=== PATIENT | female | born 1940 | race Caucasian/White ===

== ENCOUNTER 2024-03-25 19:44 | Inpatient (IN) | payer MEDICARE, SELFPAY ==
[2024-03-25 15:35] VITALS: BP 114/50; BMI 26.5
[2024-03-25 15:49] LABS: Hematocrit 35.4 % (37.0-47.0); Hemoglobin 12.2 g/dL (12.0-16.0); Mean Corp Hgb Conc. 34.5 g/dL (33.0-37.0); Mean Corpuscular Hgb 29.1 pg (27.0-31.0); Mean Corpuscular Volume 84.5 fL (81.0-99.0); Mean Platelet Volume 10.1 fL (7.4-10.4); Platelet Count 225 10^3/uL (130-400); Red Blood Cell Count 4.19 10^6/uL (4.20-5.40); Red Cell Dist. Width 13.3 % (11.5-14.5); White Blood Cell Count 8.4 10^3/uL (4.8-10.8)
[2024-03-25 16:10] LABS: ALT (SGPT) 142 U/L (0-35); AST (SGOT) 255 U/L (14-36); Alkaline Phosphatase 104 U/L (38-126); Blood Urea Nitrogen 11 mg/dl (7-17); Calcium 8.8 mg/dl (8.4-10.2); Carbon Dioxide 26 mmol/L (22-30); Chloride 111 mmol/L (98-107); Estimated Creatinine Clearance 51 ml/min; Glucose 111 mg/dl (70-99); Potassium 4.3 mmol/L (3.5-5.1); Sodium 139 mmol/L (135-145); Total Bilirubin 0.5 mg/dl (0.2-1.3); Total Protein 6.3 g/dl (6.3-8.2); eGFR > 60.00
[2024-03-25 16:12] LABS: Troponin I < 0.012 ng/ml
--- NOTE | 2024-03-25 16:59 | ED.GENMED ---
History of Present Illness
General
Chief Complaint: Chest Pain
Source: patient, ambulance crew and other (significant other)
Time Seen by Provider: 03/25/24 16:46
History of Present Illness
History of Present Illness:
83-year-old female with past medical history of early dementia, hypercholesterolemia presenting to the emergency department via EMS from [facility] for evaluation after she was reporting upper abdominal/chest
discomfort that started about 30 minutes prior to arrival to the emergency department, fully resolved upon getting to the ER. Patient was given 481 mg aspirin tablets and approximately 200 mL of IV fluids after her blood pressure was found to be
low and she is reporting her symptoms are all now fully resolved. Patient is unable to recall much about the pain secondary to her dementia history. Patient's boyfriend who is currently in the room with her was noting that he sees her about 3
times per week and was there when the patient expressed the pain and he contacted the security at [facility] who were the ones who contacted EMS. Patient does have a history of some type of mass removal from the stomach and hysterectomy as part
of surgical history. Patient does not believe she has had prior cholecystectomy nor appendectomy.
Past History
Past History
ED Past Medical History: Hypercholesterolemia and Other (Dementia)
ED Past Surgical History: Brain, Gynecological, Orthopedic and Other
Social History
Tobacco: Non-smoker
Alcohol: Occasional
Drug: None
Personal: Partner
Living: alone
Review of Systems
Review of Systems
All Other Systems: ROS reviewed and negative except as documented in HPI and ROS
Phy Exam
Physical Exam
Physical Exam:
GENERAL: Alert , in no apparent distress, smiling and pleasant
EYE: clear conjunctiva b/l
HEAD: NCAT
ENT: o/p clr, mmm.
CARDIAC: Regular rate and rhythm .
LUNGS: Clear breath sounds bilaterally, no acute respiratory distress, no wheezes/rales/rhonchi
ABDOMEN: Soft, tenderness within the epigastrum, no r/g, no cvat, negative Bonilla sign, no tenderness at McBurney's point
NEUROLOGICAL: Alert and oriented
SKIN: Warm and dry, skin intact.
MUSCULOSKELETAL: well perfused.
PSYCH: Normal and appropriate interaction.
Scores
Heart Failure Risk
Heart Failure Risk Score: Not Applicable
Heart Score for Chest Pain Patients
STEMI patient?: No
History: Slightly or Non-Suspicious
ECG: Normal
Age: >/= 65 years
Risk Factors: 1 or 2 Risk Factors
Troponin: </= Normal Limit
Heart Score for Chest Pain Patients: 3
Heart Score Risk: 2.5% MACE over next 6 weeks
Withdrawal Assessment of Alcohol
Withdrawal Assessment Completed?: Not applicable
Course
Orders/Labs/Results
Orders:
Orders
03/25/24 15:30
EKG [Electrocardiogram (*1)] Urgent
Reason for Study: Chest Pain
03/25/24 15:31
EKG- Treatment ONCE
03/25/24 15:33
Alcohol Urgent
Complete Blood Count/No Diff Urgent
Comprehensive Metabolic Panel Urgent
Lipase Urgent
Comment: ADD ON
Troponin I Urgent
03/25/24 16:48
US Abdomen Complete/Upper Urgent
Comment:
Reason For Exam: upper abd pain/chest pain
03/25/24 16:54
Add On- LAB Urgent
Tests Added?: alcohol
03/25/24 17:29
Add On- LAB Urgent
Tests Added?: lipase
03/25/24 18:34
EKG [Electrocardiogram (*1)] Urgent
Reason for Study: Other
Other Reason for Exam: repeat trop
EKG- Treatment ONCE
03/25/24 18:38
Troponin I Urgent
03/25/24 19:07
Admit/Transfer Patient As Directed
Co-Sign Provider:
Level of Care: Inpatient admission
Assign to:: Medical/Surgical
Physician / Group: susan
Diagnosis: cholelithiasis
Reason for Hospitalization: cholelithiasis
Expected length of stay greater than two midnights?: Yes
ELOS- Estimated Length of Stay in days: 3
I certify the patient meets the requirements for IP care: Yes
Code Status As Directed
Resuscitation Status: Do not resuscitate
Reached after discussion with pt or family/Healthcare POA: Yes
PRN Pain Medication Management As Directed
May give lesser potent ordered pain med per pt: Yes
preference::
Protocol:: Medication orders for pain may be administered in a
manner that supports deferring to patient preference
when the pt is:
- Requesting an ordered lesser potent pain medication.
Least to most potent pain medications are defined
as: acetaminophen < NSAID < tramadol < opioids
(morphine, oxycodone, hydromorphone).
- Requesting a lesser dose of the same medication IF
ORDERED.
- Requesting a less intrusive route of administration
if both routes are prescribed by the provider (PO <
IV).
03/25/24 19:08
DNR Bracelet Application ONCE
Abnormal Lab Results
03/25/24
15:33
RBC 4.19 L 10^6/uL
(4.20-5.40)
Hct 35.4 L %
(37.0-47.0)
Chloride 111 H mmol/L
(98-107)
Glucose 111 H mg/dl
(70-99)
AST 255 H U/L
(14-36)
ALT 142 H U/L
(0-35)
Albumin 3.0 L g/dl
(3.5-5.0)
03/25/24 15:33
03/25/24 15:33
Vital Signs
Initial and Last Documented VS:
Initial Vital Signs
Temp Pulse Resp BP Pulse Ox
97.9 F 73 30 114/50 97
03/25/24 15:35 03/25/24 15:35 03/25/24 15:35 03/25/24 15:35 03/25/24 15:35
Last Documented Vital Signs
Temp Pulse Resp BP Pulse Ox
97.9 F 75 24 114/50 96
03/25/24 15:35 03/25/24 19:00 03/25/24 19:00 03/25/24 15:35 03/25/24 19:00
MDM/Problems Addressed
Differential Diagnosis Includes:
possible ACS, referred GI pain, cholecystitis, cholelithiasis, GERD
MDM/Problems Addressed:
83-year-old female presenting to the emergency department to be evaluated for upper abdominal/chest pain that began about 30 minutes prior to arrival to the emergency department. Symptoms now fully resolved. Patient has history of dementia so
history was somewhat limited and difficult to obtain. Lab work had been initiated upon arrival which does show a transaminitis. Patient does not have previous labs to compare to. Patient and her significant other are both unaware of any previous
labs showing elevated LFTs. Given the reports of upper abdominal pain gallbladder/liver pathology is certainly possible. Will obtain an ultrasound to further evaluate. Will repeat EKG and troponin. Disposition pending.
*Radiology
Radiology exam reviewed: radiology read reviewed
*Pulse Oximetry
Patient hypoxic: no
*EKG
Interpreted by ED Provider?: Yes
Comparison EKG: no comparison EKG present
Heart Rate: 70
Rate: normal
Rhythm: sinus
Ischemia: no ischemia
*Malt House Operator Interpretation
Rate: normal
Rhythm: sinus
*Critical Care Note
Total Time (30-74mins, 75-104mins- exclusive of procedures): Not Applicable
Patient Management
Discussion with other providers: Hospitalist and [employer]otive [employer] Counter Person
Escalation/DeEscalation of care consider admission/obs:
Patient's ultrasound shows multiple shadowing gallstones filling the gallbladder lumen. There is no evidence for gallbladder wall thickening or pericholecystic edema. No evidence for biliary ductal dilatation. Patient maintaining she does not
have any pain but when you press on the epigastrium she is still stating that it causes her discomfort. I discussed the case with general surgery and given the patient's age combined with history of dementia it was best felt patient be observed
overnight with surgery consultation in the morning. Will hold on antibiotics given patient does not have a fever and no leukocytosis. Hospitalist team accepts for continued evaluation and treatment.
ED Attending Note
-
Portions of this chart may have been created with voice recognition software.� Occasional wrong word or��sound alike� substitutions may have occurred due to the inherent limitations of voice recognition software.
Discharge Plan
Departure
Patient Disposition: Admit
Date of Disposition: 03/25/24
Time of Disposition: 18:27
Presentation/result/management discussed w/ accepting MD/DO: Hospitalist
Discharge Problem:
Symptomatic cholelithiasis
Prescriptions:
No Action
donepezil 10 mg tablet
10 mg PO DAILY
prednisone 5 mg tablet
2.5 mg PO DAILY
Theragen Tablet
1 tab PO DAILY
cyanocobalamin (vitamin B-12) 500 mcg Tablet
500 mcg PO DAILY
memantine 10 mg tablet
20 mg PO DAILY
Referrals:
Jarocho Kam MD [Family Provider] -
Interventions
Interventions:
*Risk Screen - Suicide Last Done: 03/25/24 15:35
*General Assessment Last Done: 03/25/24 15:35
*Neglect/Abuse Screening Last Done: 03/25/24 15:35
*ED COVID-19 Vaccine History Last Done: 03/25/24 15:35
ED- Cardiac Assessment Last Done: 03/25/24 16:23
Discharge Date and Time
Print Language: PALESTINIAN
[2024-03-25 17:36] LABS: Alcohol None Detected
[2024-03-25 17:42] LABS: Lipase 125 U/L (23-300)
--- NOTE | 2024-03-25 18:41 | HPS.HSE ---
Family Physician
-
Family Physician: Jarocho Kam
Chief Complaint
-
epigastric pain
History of Present Illness
83-year-old female with past medical history of early dementia, hypercholesterolemia presented to us with epigastric pain. denied n/v/d. her LFT were elevated for past few months. as per daughter, she was required to do liver biopsy but never got to
it. denied fever, chills, chest pain, sob. denied CANCINO, dizzy or syncopal episode. denied dysuria or hematuria.
abdominal US with Multiple shadowing gallstones filling the gallbladder lumen. No gross evidence for gallbladder wall thickening or pericholecystic edema, although shadowing gallstones do slightly limit evaluation.
admitting for further management.
Medical History
Past Medical History
Past Medical History: Reports Other
Additional Past Medical History:
dementia
HTn
Past Surgical History: Reports Other
Additional Past Surgical History:
partial hysterectomy
aneurysm clips
Social History
Tobacco: Non-smoker
Alcohol: None
Drug: None
Personal: Single
Living: Alone
Family History
Family History: Not pertinent
Allergies / Home Medications
Allergies reflects when Allergies were last updated in [email or web address].
Home Medications with original date entered in [email or web address]
Allergy/Medication List:
Allergies
Allergy/AdvReac Type Severity Reaction Status Date / Time
No Known Allergies Allergy Verified 03/25/24 15:32
Home Medications
cyanocobalamin (vitamin B-12) 500 mcg tablet 500 mcg PO DAILY 03/25/24
donepezil 10 mg tablet 10 mg PO DAILY 03/25/24
memantine 10 mg tablet 20 mg PO DAILY 03/25/24
prednisone 5 mg tablet 2.5 mg PO DAILY 03/25/24
therapeutic multivitamin 1 tab PO DAILY 03/25/24
Review of Systems
-
Constitutional: Reports No Symptoms
EENT: Reports No Symptoms
Respiratory: Reports No Symptoms
Cardiac: Reports No Symptoms
Abdomen/GI: Reports Abdominal Pain
: Reports No Symptoms
Musculoskeletal: Reports No Symptoms
Skin: Reports No Symptoms
Neurological: Reports No Symptoms
Endocrine: Reports No Symptoms
Hematologic/Lymphatic: Reports No Symptoms
Psych: Reports No Symptoms
Physical Exam
Vital Signs
Vital Signs
Temp Pulse Resp BP Pulse Ox
97.9 F 77 26 114/50 97
03/25/24 15:35 03/25/24 16:45 03/25/24 16:45 03/25/24 15:35 03/25/24 17:39
Physical Exam
General: Well Developed, Well Nourished and No Apparent Distress
HEENT: NormoCephalic, Moist mucous membranes and Atraumatic
Respiratory: Clear
Cardiac: S1/S2 and Regular Rhythm; No Murmur or Rub
GI: Soft, Non Tender, Non Distended and Normal Bowel Sounds; No Organomegaly
Rectal: Deferred by Provider
Musculoskeletal: No Clubbing, No Cyanosis and No Edema
Skin: No Rash
Neuro: Nonfocal/grossly intact
Psych: Calm
Laboratory Results
-
03/25/24 15:33
03/25/24 15:33
Laboratory Results
Total Bilirubin 0.5 mg/dl (0.2-1.3) 03/25/24 15:33
AST 255 U/L (14-36) H 03/25/24 15:33
ALT 142 U/L (0-35) H 03/25/24 15:33
Alkaline Phosphatase 104 U/L (38-126) 03/25/24 15:33
Troponin I < 0.012 ng/ml 03/25/24 15:33
Lipase 125 U/L (23-300) 03/25/24 15:33
Data Reviewed
-
CT Scan: Report Reviewed by me
Lab Data: Labs Reviewed by me
Impression/Plan
-
#symptomatic cholelithiasis with elevated LFT
-AST 255,ALT 142
-US abdomen with Multiple shadowing gallstones filling the gallbladder lumen. No gross evidence for gallbladder wall thickening or pericholecystic edema, although shadowing gallstones do slightly limit evaluation.Negative sonographic Bonilla's sign.
No evidence for biliary ductal dilation.
-NPO
-fluids for hydration
-dilaudid prn for pain
-trend LFTs
-surgery consulted
#dementia
-Aricept,memantine continued
#RA
-prednisone continued
#DVT prophylaxis
-Lovenox
#CODE status
-DNR
--- NOTE | 2024-03-25 18:44 | W.PN.UPDATE ---
Update Note
Progress Note Update
This is an addendum to H&P written by PRODUCTION HONING MACHINE OPERATOR Tiana Villa
I saw and examined the patient.
The PRODUCTION HONING MACHINE OPERATOR's note was reviewed and I agree with the note.
Comment:
Ms. Modesta Hurst is a 83 yo woman with hx dementia, HLD presents with upper abdominal pain and chest discomfort that was fully resolved upon arrival to the ER.
Triage VS: T 97.9, P 73, RR 30, BP 114/50, SpO2 97%
LABS: WBC 8.4, H 12.2, PLT 225, Na 139, K+ 4.3, Cl 111, Cr 0.7, Glucose 111, T. Bili 0.5, AST 255, ALT 142, Trop 0.012, Lipase 125
RUQ US
IMPRESSION:
Multiple shadowing gallstones filling the gallbladder lumen. No gross evidence for gallbladder wall thickening or pericholecystic edema, although shadowing gallstones do slightly limit evaluation.
Negative sonographic Bonilla's sign. No evidence for biliary ductal dilation.
Coarsening of hepatic echotexture, a nonspecific finding suggesting hepatocellular disease.
Symptomatic Cholelithiasis
-history complicated as daughter reports patient has chronically elevated liver enzymes and plan was for liver biopsy that was not pursued. will request outpatient records.
-patient admitted to medicine
-case discussed by ER and Dr. Rothman, surgery team to fully consult tomorrow AM
-admit to med/surg
-IVF
-NPO after MN
-pain control
-currently no indication for abx
-patient is on low daily prednisone dose at home, dose not meet requirement for stress dose steroids for surgery
Dementia
-MANAGER IN HOME Donepezil and Memantine
Rheumatoid Arthritis
-MANAGER IN HOME Prednisone
DNR - confirmed by daughter over the phone
[2024-03-25 19:18] LABS: Troponin I < 0.012 ng/ml
[2024-03-25 20:31] VITALS: BP 124/60; BMI 27.4
[2024-03-25] MEDS: NSS 1000 IV (20:44)
--- NOTE | 2024-03-25 23:12 | VATNOTE ---
pt wants to keep Prehospital line in.
[2024-03-25 23:35] VITALS: BP 118/56
[2024-03-26 07:33] VITALS: BP 124/58
[2024-03-26 07:54] LABS: Hemoglobin 12.2 g/dL (12.0-16.0); Mean Corp Hgb Conc. 34.9 g/dL (33.0-37.0); Mean Corpuscular Hgb 29.1 pg (27.0-31.0); Mean Corpuscular Volume 83.5 fL (81.0-99.0); Mean Platelet Volume 10.4 fL (7.4-10.4); Platelet Count 211 10^3/uL (130-400); Red Blood Cell Count 4.19 10^6/uL (4.20-5.40); Red Cell Dist. Width 13.2 % (11.5-14.5); White Blood Cell Count 6.1 10^3/uL (4.8-10.8)
--- NOTE | 2024-03-26 08:03 | CON.GS ---
Addendum entered and electronically signed by Jamie Silverman MD 03/26/24 13:05:
Patient seen and examined independently of residential glazier. Agree with documented progress note.
Patient is a limited historian secondary to dementia. She states that she has had intermittent abdominal pain. It occurs at various times a day and often after meals. Came into the emergency department because it was worse than previously. In
follow-up with the patient's daughter she confirms the above history. She has also had mildly elevated liver testing recently that has been followed.
Currently patient denies pain while resting in bed. She is hungry. She would like to return to [place] [facility]. She lives in independent living still but with the assistance of her boyfriend family members and caretakers.
AFVSS
NAD AAO to self and hospital
Abdomen: Soft, nondistended, mild tenderness palpation epigastrium and right upper quadrant
Ultrasound with gallstones. No biliary ductal dilation.
Laboratory testing with normal white blood cell count.
Chemistries with mild elevation in AST and ALT but normal bilirubin and alkaline phosphatase. Lipase normal
HIDA scan completed. Radiologist report pending but on my review and interpretation the gallbladder appears to be promptly visualized as well as biliary tree and small intestine ruling out cystic duct or biliary obstruction.
Assessment/plan: 83-year-old female with biliary colic, likely acute on chronic intermittent episodes.
After discussions with the patient's daughter her preference is to manage gallstones expectantly through this hospitalization with plan for discharge at which point she will subsequently have follow-up conversations with her mother about considering
cholecystectomy for more definitive management.
Resume low-fat diet. Okay for discharge if tolerates p.o. challenge.
Original Note:
Consultation
-
Performing Provider: Milton Camacho MD ; Jamie Silverman MD
Reason for Consultation: Abdominal pain
Medical History
-
Chief Complaint: Epigastric and right upper quadrant abdominal pain
History of Present Illness:
83-year-old female with past medical history significant for dementia, hyperlipidemia presented to the emergency department with complaints of epigastric and right upper quadrant abdominal pain. She denies any nausea, vomiting, diarrhea. Per her
daughter, patient's liver function test were elevated for past few months, she was recommended to get liver biopsy but she never received that. Ultrasound of her abdomen is performed for further evaluation which showed multiple shadowing gallstones
filling the gallbladder lumen. No gross evidence of gallbladder wall thickening or pericholecystic edema, although shadowing gallstone to slightly limited evaluation. Patient was admitted for further evaluation.
Past Medical History
Past Medical History: HTN and Other (Dementia, hyperlipidemia)
Past Surgical History: Other (Hysterectomy, aneurysm clips)
Social History
Tobacco: Non-Smoker
Alcohol: None
Drug: None
Living: Alone
Allergies / Home Medications
Allergy/AdvReac Type Severity Reaction Status Date / Time
No Known Allergies Allergy Verified 03/25/24 15:32
�Medication �Instructions �Recorded �Confirmed �Type
cyanocobalamin (vitamin B-12) 500 500 mcg PO DAILY 03/25/24 03/25/24 History
mcg tablet
donepezil 10 mg tablet 10 mg PO DAILY 03/25/24 03/25/24 History
memantine 10 mg tablet 20 mg PO DAILY 03/25/24 03/25/24 History
prednisone 5 mg tablet 2.5 mg PO DAILY 03/25/24 03/25/24 History
therapeutic multivitamin 1 tab PO DAILY 03/25/24 03/25/24 History
Review of Systems
-
History Source: Patient
Constitutional: No Symptoms
EENT: No Symptoms
Respiratory: No Symptoms
Abdomen/GI: No Symptoms (Reports abdominal pain improved on its own)
A 10 point review of systems was completed, and was negative except as per HPI.
Physical Exam
Vital Signs
Temp Pulse Resp BP Pulse Ox
97.6 F 67 15 124/58 96
03/26/24 07:33 03/26/24 07:33 03/26/24 07:33 03/26/24 07:33 03/26/24 07:33
03/25/24 03/26/24 03/27/24
06:59 06:59 06:59
Actual Weight 61.462 kg
Body Mass Index (BMI) 27.4
Lab Results
03/26/24 06:54
WBC 6.1 10^3/uL (4.8-10.8) 03/26/24 06:54
Hgb 12.2 g/dL (12.0-16.0) 03/26/24 06:54
Hct 35.0 % (37.0-47.0) L 03/26/24 06:54
Plt Count 211 10^3/uL (130-400) 03/26/24 06:54
Physical Exam
General: Well Developed, Well Nourished and No Apparent Distress
GI: Soft, Non Tender (negative Bonilla's sign) and Non Distended
Skin: Warm and Dry
Neuro: Awake, Alert and Oriented
Psych: Calm
Data Reviewed
-
Ultrasound: Report Reviewed by me, Discussed with Physician and Discussed with Patient
Labs: Labs Reviewed by me, Discussed with Physician and Discussed with Patient
Total Time Spent with Patient (in minutes): 15
Assessment / Plan
-
83-year-old female with past medical history of dementia presented with acute epigastric pain. Ultrasound of her abdomen showed multiple shadowing gallstones filling the gallbladder lumen.
Symptomatic cholelithiasis with elevated LFTs
-Check HIDA scan to see if there is any blockage
-N.p.o. in case procedure is needed
-IV dilaudid for pain prn
All questions answered.
[2024-03-26 08:32] LABS: ALT (SGPT) 172 U/L (0-35); AST (SGOT) 160 U/L (14-36); Albumin 2.7 g/dl (3.5-5.0); Alkaline Phosphatase 103 U/L (38-126); Blood Urea Nitrogen 11 mg/dl (7-17); Calcium 8.5 mg/dl (8.4-10.2); Carbon Dioxide 23 mmol/L (22-30); Chloride 113 mmol/L (98-107); Estimated Creatinine Clearance 48 ml/min; Glucose 80 mg/dl (70-99); Potassium 3.9 mmol/L (3.5-5.1); Sodium 138 mmol/L (135-145); Total Bilirubin 0.5 mg/dl (0.2-1.3); Total Protein 5.9 g/dl (6.3-8.2); eGFR > 60.00
--- NOTE | 2024-03-26 09:31 | W.PN.HOSP.TC ---
Today's Communication/Plan
-
Discharge planning today.
Assessment / Plan
Assessment / Plan
Physical exam:
General: Well Developed, Well Nourished and No Apparent Distress
HEENT: Normocephalic, Atraumatic and Moist Mucous Membranes
Respiratory: Clear to Auscultation; Negative Wheezes, Rales or Rhonchi
Cardiac: Regular Rhythm and S1/S2
GI: Soft, Non-tender and Nondistended
Musculoskeletal: No Clubbing, No Cyanosis and No Edema
Neuro: Awake, Alert and Oriented, cognitive deficits
Psych: Calm
A/P:
#symptomatic cholelithiasis with elevated LFT
HIDA scan done but pending report
Appreciated surgery input
Surgery reached out to me and plan is to do outpatient lap cholecystectomy but no need for urgent surgery at the moment so she can be discharged home today.
I reached out to family and they are in agreement.
Will advance diet and plan to discharge today.
#dementia
-Aricept,memantine continued
#RA
-prednisone continued
#DVT prophylaxis
-Lovenox
#CODE status
-DNR
Anticipated Discharge: Today
Subjective/Interval History
-
Date of Service: March 26, 2024
Patient denies abdominal pain nausea or vomiting. Afebrile
Objective Data
-
Labs:
Laboratory Results
03/26/24
06:54
WBC 6.1
Hgb 12.2
Hct 35.0 L
Plt Count 211
Sodium 138
Potassium 3.9
Chloride 113 H
Carbon Dioxide 23
BUN 11
Creatinine 0.7
Glucose 80
Calcium 8.5
Total Bilirubin 0.5
AST 160 H
ALT 172 H
Alkaline Phosphatase 103
Vital Signs:
Vital Signs
Temp Pulse Resp BP Pulse Ox
97.6 F 67 15 124/58 96
03/26/24 07:33 03/26/24 07:33 03/26/24 07:33 03/26/24 07:33 03/26/24 07:33
I&O
03/25/24 03/26/24 03/27/24
06:59 06:59 06:59
Intake Total 480 / 480
Balance 480 / 480
[2024-03-26] MEDS: ARICEPT 10 MG PO (10:16)
[2024-03-26] MEDS: DELTASONE 2.5 MG PO (10:16)
[2024-03-26] MEDS: NAMENDA 20 MG PO (10:16)
--- NOTE | 2024-03-26 11:23 | PTOTSP ---
Patient observed ambulating independently into the room from a stretcher. Spoke with the patient briefly who confirms she is independent with mobility and there have been no changes in her functional ability. Patient is agreeable to PT signing off
and is aware our services are available if any changes occur. Will sign off at this time.
--- NOTE | 2024-03-26 12:10 | CM ---
Patient seen bedside with significant other, Antonio Daniel. Initial assessment completed. Patient resides at [facility] independent apartments. Patient denies the use of any DME, reports she ambulates independently. Patient denies VN or SNF history.
Patient reports she has three children who are all supportive. Patient PCP Jarocho Kam, pharmacy [facility] in [place]. Patient forgetful during assessment and asking CM same questions. CM will continue to follow for any needs upon
discharge.
Plan; return to [facility] when stable.
--- NOTE | 2024-03-26 13:21 | W.DCSUMMARY ---
Discharge Summary
Discharge Data
Date of Admission: 03/25/24
Date of Discharge: 03/26/24
-
Pending Results: No
Hospital Course
Patient 83 years old female with history of dementia, hypertension, hyperlipidemia presented to the hospital with abdominal pain and elevated LFTs. Patient was noted to have some chronic elevation of her LFTs but on her ultrasound of the abdomen
was found to have multiple gallstones. Surgery consulted. HIDA scan was ordered and no evidence for cystic or common bile duct obstruction. Surgery and I discussed with family and the plan is to do outpatient lap cholecystectomy and they are in
agreement with this plan. There is no need for urgent surgical intervention at the moment but should the need arise they can come back to the hospital. Will have her follow-up LFTs as outpatient. Otherwise, patient is hemodynamically stable,
afebrile, pain-free, and tolerating diet without any problems. Patient will be discharged in stable condition today.
Discharge duration: 31 minutes
Discharge Plan
-
Patient Disposition: Home (Routine Discharge)
Discharge Diagnosis/Procedures: Cholelithiasis. Elevated liver function test. Dementia.
Diet: Low Cholesterol
Activity: As tolerated
Blood Work: Please PCP to order CBC, CMP within 1 week
Referrals:
Jamie Silverman MD [Active] - in two to three weeks
Jarocho Kam MD [Family Provider] - in less than 1 week
Prescriptions:
Continued
donepezil 10 mg tablet
10 mg PO DAILY
prednisone 5 mg tablet
2.5 mg PO DAILY
therapeutic multivitamin Tablet
1 tab PO DAILY
cyanocobalamin (vitamin B-12) 500 mcg Tablet
500 mcg PO DAILY
memantine 10 mg tablet
20 mg PO DAILY
Discharge Orders:
Discharge Patient (As Directed); Ordered 03/26/24
Ordered By: Álvaro Hernández
Discharge Date and Time
Discharge Date/Time: 03/26/24 16:45
Print Language: [id number]
[2024-03-26 15:07] VITALS: BP 106/45
== END 2024-03-26 16:45 | disposition home or self-care (01) | DRG 446 ==
LOC: 2 SOUTH 19:44
PROVIDERS: Physician Assistant Medical; Registered Nurse; ADMITTING PHYSICIAN Student in an Organized Health Care Education/Training Program; ATTENDING PHYSICIAN Hospitalist; EMERGENCY PHYSICIAN Student in an Organized Health Care Education/Training Program; FAMILY PHYSICIAN Internal Medicine Rheumatology; OTHER PHYSICIAN Surgery
DX: K80.20 Calculus of gallbladder without cholecystitis without obstruction (principal); R07.89 Other chest pain; E78.00 Pure hypercholesterolemia, unspecified; F03.90 Unspecified dementia, unspecified severity, without behavioral disturbance, psychotic disturbance, mood disturbance, and anxiety; R74.01 Elevation of levels of liver transaminase levels; M06.9 Rheumatoid arthritis, unspecified; I10 Essential (primary) hypertension; R79.89 Other specified abnormal findings of blood chemistry; Z66 Do not resuscitate; Z79.52 Long term (current) use of systemic steroids
CPT/HCPCS: 76700; 78226; 80053; 82077; 83690; 84484; 85027; 93005; 99285; A9537

== ENCOUNTER 2024-10-27 21:00 | Day surgery (SDC) | payer MEDICARE, SELFPAY ==
[2024-10-27 15:06] VITALS: BP 112/68
[2024-10-27 15:24] VITALS: BMI 26.5
--- NOTE | 2024-10-27 15:36 | ED.GENMED ---
History of Present Illness
General
Chief Complaint: Abdominal Pain
Source: patient
Exam Limitations: none
Time Seen by Provider: 10/27/24 15:09
Nursing documentation reviewed up to this point in time: agreed with
History of Present Illness
History of Present Illness:
Patient is an 84-year-old female with history dementia, known gallstones presenting to the emergency department for evaluation of intermittent upper abdominal pain associated with nausea. History somewhat limited due to patient's history of
dementia. Patients daughter states that patient has been having intermittent nausea, vomiting and upper abdominal discomfort for the past 13 days which they originally thought was a viral GI bug. However - last night patient reportedly had a
cheeseburger for dinner and shortly after had somewhat severe upper abdominal pain and nausea which lasted a few hours and then dissipated. Patient then had a similar episode this morning prompting evaluation in ED.
At this time patient reports nausea and mild upper abdominal discomfort. She denies any chest pain, shortness of breath, back pain, lightheadedness. No fevers or chills.
Patient was admitted to the hospital in 03/2024 for similar symptoms and found to have gallstones without any evidence of obstructing stone or cholecystitis. Patient was discharged with plan for outpatient cholecystectomy although this has not been
performed.
Past History
Past History
ED Past Medical History: Hypercholesterolemia and Other (Dementia)
ED Past Surgical History: Brain, Gynecological, Orthopedic and Other
Social History
Tobacco: Non-smoker
Alcohol: Occasional
Drug: None
Personal: Partner
Living: alone
Review of Systems
Review of Systems
Allergies reviewed?: Yes
All Other Systems: ROS reviewed and negative except as documented in HPI and ROS
Phy Exam
Physical Exam
Physical Exam:
Vitals: Patient's vital signs are stable. Afebrile
General: Patient is well appearing, no acute distress. Nontoxic appearing
Skin: Warm and dry, no rashes or lesions
Head: Normocephalic, atraumatic
Eyes: Sclera nonicteric. EOMs intact. No nystagmus.
Throat: Protecting airway
Neck: Normal ROM, no cervical spine tenderness, no meningismus
Cardiac: Regular rate and rhythm, no murmurs.
Pulm: Normal respiratory effort, no wheezes, rales, rhonchi heard on exam.
Abdomen: Abdomen soft. Mild tenderness in epigastric region. No tenderness at McBurney's point. Negative Bonilla sign.
Extremities: No evidence of cyanosis or edema
Neuro: AAOx2 to person and place, not time. No focal deficits
Psychiatric: Normal affect.
Course
Orders/Labs/Results
Orders:
Orders
10/27/24 15:29
EKG [Electrocardiogram (*1)] Urgent
Reason for Study: Tachycardia
EKG- Treatment ONCE
10/27/24 15:30
US Abdomen Complete/Upper Urgent
Comment: hx gallstones
Reason For Exam: upper abdominal pain
10/27/24 15:31
0.9% Sodium Chloride 1000 ml [Nss] 1,000 ml IV BOLUS
Famotidine [Pepcid] 20 mg IV NOW STA
Ondansetron Injectable [Zofran] 4 mg IV NOW STA
10/27/24 15:33
Comprehensive Metabolic Panel Urgent
Lipase Urgent
10/27/24 15:34
Complete Blood Count/With Diff Urgent
Troponin I Urgent
10/27/24 18:35
Electrocardiogram (*1) Urgent
Reason for Study: Abdominal Pain
EKG- Treatment ONCE
Troponin I Urgent
10/27/24 20:29
Admit/Transfer Patient As Directed
Co-Sign Provider:
Level of Care: Observation services
Assign to:: Medical/Surgical
Physician / Group: hospitalist
Diagnosis: biliary colic
PRN Pain Medication Management As Directed
May give lesser potent ordered pain med per pt: Yes
preference::
Protocol:: Medication orders for pain may be administered in a
manner that supports deferring to patient preference
when the pt is:
- Requesting an ordered lesser potent pain medication.
Least to most potent pain medications are defined
as: acetaminophen < NSAID < tramadol < opioids
(morphine, oxycodone, hydromorphone).
- Requesting a lesser dose of the same medication IF
ORDERED.
- Requesting a less intrusive route of administration
if both routes are prescribed by the provider (PO <
IV).
10/27/24 20:30
Code Status As Directed
Resuscitation Status: Do not resuscitate
Reached after discussion with pt or family/Healthcare POA: Yes
DNR Bracelet Application ONCE
10/27/24 21:11
Acetaminophen [Tylenol] 650 mg PO Q4HPRN PRN
Docusate W/Senna [Senokot-S] 1 tablet PO BIDPRN PRN
HYDROmorphone [Dilaudid] 0.5 mg IV Q4HPRN PRN
Mag Hydrox/Al Hydrox/Simeth [Maalox] 30 ml PO Q6HPRN PRN
Ondansetron Injectable [Zofran] 4 mg IV Q6HPRN PRN
Polyethylene Glycol Powder [Miralax] 17 grams PO DAILYPRN PRN
10/27/24 21:11
SURGICAL CONSULT Routine
Consulting Provider: Jamie Silverman
Was physician already notified: Yes
Reason for consult: biliary colic
Activity As Directed
Activity Level: With Assistance
Pneumatic Compression Sleeves As Directed
Type: Knee high
Vital Signs As Directed
Frequency: Per unit guidelines
Pulse Ox/spot Check [RESP] Routine
Quantity: 1
DX Deep Vein Thrombosis Video Routine
10/27/24 23:00
Troponin I Routine
10/28/24 Breakfast
NPO
Allow oral meds: Yes
Allow clear liquids: Sips of Clears
NPO with Ice Chips: Yes
Basic Metabolic Panel IN AM
LFT [Dvarh-Yblc-Rrejgjp] IN AM
10/28/24 08:00
Cyanocobalamin [Vitamin B-12] 500 mcg PO DAILY
Donepezil HCl [Aricept] 10 mg PO DAILY
Memantine HCl [Namenda] 20 mg PO DAILY
Multivitamin [Theragran] 1 tablet PO DAILY
Prednisone [Deltasone] 2.5 mg PO DAILY
Abnormal Lab Results
10/27/24 10/27/24
15:33 15:34
RBC 4.19 L 10^6/uL
(4.20-5.40)
Hct 36.9 L %
(37.0-47.0)
Absolute Monos (auto) 0.9 H 10^3/uL
(0.1-0.6)
Monocytes % 14.1 H %
(1.7-9.3)
Potassium 3.1 L mmol/L
(3.5-5.1)
Chloride 108 H mmol/L
(98-107)
AST 54 H U/L
(14-36)
ALT 52 H U/L
(0-35)
Troponin I 0.041 H* ng/ml
Total Protein 5.6 L g/dl
(6.3-8.2)
Albumin 2.6 L g/dl
(3.5-5.0)
10/27/24 15:34
10/27/24 15:33
Vital Signs
Initial and Last Documented VS:
Initial Vital Signs
Temp Pulse Resp BP Pulse Ox
97.9 F 80 16 112/68 96
10/27/24 15:06 10/27/24 15:06 10/27/24 15:06 10/27/24 15:06 10/27/24 15:06
Last Documented Vital Signs
Temp Pulse Resp BP Pulse Ox
98.1 F 77 17 134/63 95
10/27/24 21:10 10/27/24 21:10 10/27/24 21:10 10/27/24 21:10 10/27/24 21:10
MDM/Problems Addressed
Differential Diagnosis Includes:
Not limited to: biliary colic, acute cholecystitis, choledocholithiasis, gastritis, acute coronary syndrome, etc
MDM/Problems Addressed:
84-year-old female presents with intermittent upper abdominal pain and nausea for the past few weeks. No known fever. No chest pain or shortness of breath. Patient does have known gallstones. History somewhat difficult to obtain given history of
dementia. Vital signs stable, patient is afebrile. Physical exam as above. Patient well-appearing, no apparent distress. She does have mild epigastric tenderness. Cardio/pulmonary assessment unremarkable. Symptoms consistent with likely biliary
colic given known gallstones. Will obtain labs, abdominal ultrasound. Will check troponin/EKG to ensure no underlying cardiac etiology. Will give IV fluids, Zofran, Pepcid and reassess.
Update 4:35 PM: Initial troponin elevated to 0.041. EKG shows normal sinus rhythm with some mild T wave inversions in anterior leads which appear unchanged from prior. On reassessment�patient denies any chest pain or shortness of breath. She
states symptoms improved after medication. Ultimately�low suspicion for acute coronary syndrome. Will trend troponin. CBC unremarkable. Chemistry with mild hypokalemia and mild transaminitis. Abdominal ultrasound pending
Update: Abdominal ultrasound shows gallstones without evidence of acute cholecystitis. Repeat troponin decreased to 0.033 with no EKG changes. Ultimately�suspect symptomatic cholelithiasis. Very low suspicion for acute coronary syndrome. Patient
symptoms improved at this time although concern for rebound symptoms upon discharge. Case was discussed with general surgeon, Dr. Silverman. Will admit patient for symptomatic cholelithiasis and general surgery consult tomorrow given relatively
persistent/constant symptoms over the past few weeks. Patient and patient's family comfortable with plan. Patient excepted to hospitalist service in stable condition.
Chronic conditions affecting care:
Cholelithiasis, dementia
Acute Exacerbation and/or Progression of Chronic Illness:
Acute symptomatic cholelithiasis
*Radiology
Radiology exam reviewed: radiology read reviewed
*Pulse Oximetry
Patient hypoxic: no
*EKG
Interpreted by ED Provider?: Yes
EKG Intrepretation Date: 10/27/24
Interpretation: abnormal
Comparison EKG: no changes
Heart Rate: 65
Rate: normal
Rhythm: sinus
Lysite: normal axis
Interval: normal interval
QRS Pattern: normal QRS
Ischemia: non-specific ST changes (mild t-wave inversions in anterior leads unchanged from prior)
*Quality Compliance Manager Interpretation
Rate: normal
Interpretation: normal
Heart Rate: 68
Rhythm: sinus
*Critical Care Note
Total Time (30-74mins, 75-104mins- exclusive of procedures): Not Applicable
Patient Management
Discussion with other providers: Hospitalist and College Archivist (Dr. Silverman)
Escalation/DeEscalation of care consider admission/obs:
Admit indicated
ED Attending Note
-
Portions of this chart may have been created with voice recognition software.� Occasional wrong word or��sound alike� substitutions may have occurred due to the inherent limitations of voice recognition software.
Discharge Plan
Departure
Patient Disposition: Admit
Date of Disposition: 10/27/24
Time of Disposition: 19:53
Presentation/result/management discussed w/ accepting MD/DO: Hospitalist
Discharge Problem:
Symptomatic cholelithiasis
Interventions
Interventions:
*Risk Screen - Suicide Last Done: 10/27/24 15:35
*General Assessment Last Done: 10/27/24 15:35
*Neglect/Abuse Screening Last Done: 10/27/24 15:35
*ED- Fall Risk Assessment Last Done: 10/27/24 15:35
*ED COVID-19 Vaccine History Last Done: 10/27/24 15:35
*Nursing Disposition Last Done: 10/27/24 21:19
UZ-Zboxrv-Wlogupipgf Assessment Last Done: 10/27/24 15:22
Discharge Date and Time
Discharge Date/Time: 10/27/24 21:19
[2024-10-27 15:39] VITALS: BP 107/52
[2024-10-27] MEDS: NSS 1000 IV (15:42)
[2024-10-27] MEDS: ZOFRAN 4 MG IV (15:42)
[2024-10-27] MEDS: PEPCID 20 MG IV (15:44)
[2024-10-27 15:46] LABS: % Basophils 0.6 % (0-2); % Eosinophils 2.3 % (0-6); % Immature Granulocytes 0.2 % (0-0.5); % Lymphocytes 33.1 % (20.5-51.1); % Monocytes 14.1 % (1.7-9.3); % Neutrophils 49.7 % (42.2-75.2); Absolute Eosinophils 0.2 10^3/uL (0-0.7); Absolute Lymphocytes 2.2 10^3/uL (1.2-3.4); Absolute Monocytes 0.9 10^3/uL (0.1-0.6); Absolute Neutrophils 3.2 10^3/uL (1.4-6.5); Hematocrit 36.9 % (37.0-47.0); Hemoglobin 12.4 g/dL (12.0-16.0); Mean Corp Hgb Conc. 33.6 g/dL (33.0-37.0); Mean Corpuscular Hgb 29.6 pg (27.0-31.0); Mean Corpuscular Volume 88.1 fL (81.0-99.0); Nucleated Red Blood Cells % 0 %; Platelet Count 234 10^3/uL (130-400); Red Blood Cell Count 4.19 10^6/uL (4.20-5.40); Red Cell Dist. Width 13.2 % (11.5-14.5); White Blood Cell Count 6.5 10^3/uL (4.8-10.8)
[2024-10-27 16:00] VITALS: BP 105/62
[2024-10-27 16:02] LABS: ALT (SGPT) 52 U/L (0-35); AST (SGOT) 54 U/L (14-36); Albumin 2.6 g/dl (3.5-5.0); Alkaline Phosphatase 48 U/L (38-126); Blood Urea Nitrogen 12 mg/dl (7-17); Calcium 8.5 mg/dl (8.4-10.2); Carbon Dioxide 28 mmol/L (22-30); Chloride 108 mmol/L (98-107); Estimated Creatinine Clearance 48 ml/min; Glucose 97 mg/dl (70-99); Lipase 138 U/L (23-300); Potassium 3.1 mmol/L (3.5-5.1); Sodium 137 mmol/L (135-145); Total Bilirubin 0.3 mg/dl (0.2-1.3); Total Protein 5.6 g/dl (6.3-8.2); eGFR > 60.00
[2024-10-27 16:20] LABS: Troponin I 0.041 ng/ml
[2024-10-27 18:35] VITALS: BP 112/50
[2024-10-27 19:07] LABS: Troponin I 0.033 ng/ml
--- NOTE | 2024-10-27 20:14 | HPS.HSE ---
Family Physician
-
Family Physician: Jarocho Kam
Chief Complaint
-
Abdominal pain
History of Present Illness
This is an 84-year-old generally healthy female with past medical history significant for dementia, ra on low dose prednsione, who also has history of biliary colic presenting to the emergency department with intermittent abdominal pain.
Patient and family provided history. She was seen in the hospital last year for similar presentation of biliary colic. She was followed up by surgery but did not undergo any surgical procedures at that time. Over the last few weeks patient has
been having intermittent abdominal pain associated with nausea. However over the last 24 hours she had a episode of severe colicky pain associated with nausea and nonbilious and nonbloody emesis. She had no fevers or chills. She denies any
urinary symptoms.
In the emergency department she was afebrile, blood pressure was 112/50 with a pulse of 77 and she was satting 98% on room air. Troponin was 0.04, repeat troponin was 0.03. ECG was nonischemic. CBC was unremarkable. Electrolytes BUN/creatinine
were all normal. Lipase was negative, AST and ALT elevated at 50 and 50 respectively. Normal alk phos. Normal bilirubin. Abdominal ultrasound showing cholelithiasis. No sonographic evidence for bladder wall thickening or pericholecystic edema,
and the patient has a negative sonographic Bonilla's sign.
Medical History
Past Medical History
Past Medical History: Reports Other
Additional Past Medical History:
dementia
HTn
Past Surgical History: Reports Other
Additional Past Surgical History:
partial hysterectomy
aneurysm clips
Social History
Tobacco: Non-smoker
Alcohol: None
Drug: None
Personal: Single
Living: Alone
Family History
Family History: Not pertinent
Allergies / Home Medications
Allergies reflects when Allergies were last updated in [facility].
Home Medications with original date entered in [facility]
Allergy/Medication List:
Allergies
Allergy/AdvReac Type Severity Reaction Status Date / Time
No Known Allergies Allergy Verified 10/27/24 15:08
Home Medications
cyanocobalamin (vitamin B-12) 500 mcg tablet 500 mcg PO DAILY 03/25/24
donepezil 10 mg tablet 10 mg PO DAILY 03/25/24
memantine 10 mg tablet 20 mg PO DAILY 03/25/24
prednisone 5 mg tablet 2.5 mg PO DAILY 03/25/24
therapeutic multivitamin 1 tab PO DAILY 03/25/24
Review of Systems
-
History Source: Patient and Family
Constitutional: Reports No Symptoms
EENT: Reports No Symptoms
Respiratory: Reports No Symptoms
Cardiac: Reports No Symptoms
Abdomen/GI: Reports Abdominal Pain, Nausea and Vomiting
: Reports No Symptoms
Musculoskeletal: Reports No Symptoms
Skin: Reports No Symptoms
Neurological: Reports No Symptoms
Endocrine: Reports No Symptoms
Hematologic/Lymphatic: Reports No Symptoms
Psych: Reports No Symptoms
Physical Exam
Vital Signs
Vital Signs
Temp Pulse Resp BP Pulse Ox
97.9 F 79 28 112/50 96
10/27/24 15:06 10/27/24 20:00 10/27/24 20:00 10/27/24 18:35 10/27/24 20:00
Physical Exam
General: Well Developed, Well Nourished, No Apparent Distress and Comfortable
HEENT: NormoCephalic, Anicteric, Moist mucous membranes and Atraumatic
Respiratory: Clear
Cardiac: S1/S2 and Regular Rhythm
Breast: Deferred by me
GI: Soft, Non Tender, Non Distended and Normal Bowel Sounds
Rectal: Deferred by Provider
Genito-urinary: Deferred by me
Musculoskeletal: No Clubbing, No Cyanosis and No Edema
Skin: Warm and Dry
Neuro: AO x 3 and No Motor Deficits
Hematologic/Lymphatic: No Lymphadenopathy
Psych: Calm
Laboratory Results
-
10/27/24 15:34
10/27/24 15:33
Laboratory Results
Total Bilirubin 0.3 mg/dl (0.2-1.3) 10/27/24 15:33
AST 54 U/L (14-36) H 10/27/24 15:33
ALT 52 U/L (0-35) H 10/27/24 15:33
Alkaline Phosphatase 48 U/L (38-126) 10/27/24 15:33
Troponin I 0.033 ng/ml 10/27/24 18:35
Lipase 138 U/L (23-300) 10/27/24 15:33
Data Reviewed
-
Medical Tests (Nuc Med, Echo, EKG etc): Image Personally Visualized and interpreted
Lab Data: Labs Reviewed by me
Old Records: Reviewed
Impression/Plan
-
IMPRESSION:
84-year-old with a history of dementia, biliary colic presenting with intermittent abdominal pain nausea vomiting. Currently well-appearing on examination. Cardiac testing was negative for ACS. Labs were benign, she is afebrile and shows no signs
of acute cholecystitis or cholangitis. There is no pancreatitis. Presentation consistent with recurrent biliary colic.
PLAN:
Billiary colic
- admit to med/surg
- npo after midnight
- trend LFTs
- pain control and antiemetics
- trop x 1
- consult to surgery (they are aware)
- Continue her memantine and donepizil
-DVT PPX - SCDs
Code status - DNR
[2024-10-27 21:10] VITALS: BP 134/63
[2024-10-27 22:01] VITALS: BMI 27.3
[2024-10-27] MEDS: KCL 40 MEQ PO (22:44)
--- NOTE | 2024-10-27 23:06 | PTCARENOTE ---
21:10 pt rec'vd from ER with daughter at bedside, pt is alert to self hx dx dementia and Alzheimer. pt is non compliant with call ponce, bed alarm in place, no SCD on for safety. Pt and daughter oriented to unit.
[2024-10-27 23:30] VITALS: BP 118/72
[2024-10-28] VITALS (13 sets, daily range): BP systolic 124–158; BP diastolic 54–85
[2024-10-28 07:34] LABS: ALT (SGPT) 47 U/L (0-35); AST (SGOT) 50 U/L (14-36); Albumin 2.3 g/dl (3.5-5.0); Alkaline Phosphatase 48 U/L (38-126); Blood Urea Nitrogen 10 mg/dl (7-17); Calcium 8.2 mg/dl (8.4-10.2); Carbon Dioxide 27 mmol/L (22-30); Chloride 112 mmol/L (98-107); Direct Bilirubin 0.1 mg/dl (0.0-0.4); Estimated Creatinine Clearance 55 ml/min; Glucose 82 mg/dl (70-99); Potassium 3.8 mmol/L (3.5-5.1); Sodium 139 mmol/L (135-145); Total Bilirubin 0.4 mg/dl (0.2-1.3); Total Protein 5.2 g/dl (6.3-8.2); eGFR > 60.00
--- NOTE | 2024-10-28 09:46 | CM ---
Reviewed the chart notes and spoke with the patient and her daughter at the bedside. The patient is confused. The patient is admitted under observational status. The YAP letter was provided and explained. The daughter had no questions with
regards to the letter.
The patient resides alone in an independent apartment at [facility]. Per the daughter, no DME/VN/SNF in the past. The patient currently has a child caregiver private home three days a week for two hours each time through [employer]. The patient's
pharmacy of choice is [facility]. CM continues to be available to patient/family and is monitoring medical plan for needs at discharge.
Plan: Discharge back to home with resumption of prior caregivers.
[2024-10-28] MEDS: NAMENDA 20 MG PO (10:18)
[2024-10-28] MEDS: DELTASONE 2.5 MG PO (10:19)
[2024-10-28] MEDS: ARICEPT 10 MG PO (10:19)
[2024-10-28] MEDS: VITAMIN B-12 500 MCG PO (10:20)
[2024-10-28] MEDS: THERAGRAN PO (10:25)
--- NOTE | 2024-10-28 10:33 | CON.GS ---
Medical History
-
Chief Complaint: Abdominal pain
History of Present Illness:
Patient is an 84-year-old female who I had previously evaluated as an outpatient for gallstones. At that time it was uncertain if she was experiencing biliary colic and therefore the patient and her family had chosen to follow her gallbladder
expectantly.
She has been recently experiencing recurrent bouts of postprandial abdominal pain. Her daughter spent the night with her the other day and noted that her mother had rather severe pain overnight prompting emergency department evaluation. She feels
well this morning. Symptoms have subsided while fasting. Appetite is returning.
Past Medical History
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
Past Surgical History: Other (Partial hysterectomy)
Social History
Living: Other ([employer])
Employment: Retired
Family History
Family History: Reviewed & Not Pertinent
Allergies / Home Medications
Allergy/AdvReac Type Severity Reaction Status Date / Time
No Known Allergies Allergy Verified 10/27/24 15:08
�Medication �Instructions �Recorded �Confirmed �Type
cyanocobalamin (vitamin B-12) 500 500 mcg PO DAILY 03/25/24 10/27/24 History
mcg tablet
donepezil 10 mg tablet 10 mg PO DAILY 03/25/24 10/27/24 History
memantine 10 mg tablet 20 mg PO DAILY 03/25/24 10/27/24 History
prednisone 5 mg tablet 2.5 mg PO DAILY 03/25/24 10/27/24 History
therapeutic multivitamin 1 tab PO DAILY 03/25/24 10/27/24 History
Review of Systems
-
A 10 point review of systems was completed, and was negative except as per HPI.
Physical Exam
Vital Signs
Temp Pulse Resp BP Pulse Ox
98.7 F 70 17 118/72 95
10/27/24 23:30 10/27/24 23:30 10/27/24 23:30 10/27/24 23:30 10/27/24 23:30
10/27/24 10/28/24 10/29/24
06:59 06:59 06:59
Actual Weight 61.235 kg
Body Mass Index (BMI) 27.3
Lab Results
10/27/24 15:34
10/28/24 06:04
WBC 6.5 10^3/uL (4.8-10.8) 10/27/24 15:34
Hgb 12.4 g/dL (12.0-16.0) 10/27/24 15:34
Hct 36.9 % (37.0-47.0) L 10/27/24 15:34
Plt Count 234 10^3/uL (130-400) 10/27/24 15:34
Abs Immat Gran (auto) 0.0 10^3/uL (0-0.05) 10/27/24 15:34
Neutrophils % 49.7 % (42.2-75.2) 10/27/24 15:34
Physical Exam
General: Well Developed, Well Nourished, No Apparent Distress and Comfortable
HEENT: Normocephalic, Anicteric and Moist Mucous Membranes
Respiratory: Non Labored Respirations
GI: Soft, Non Distended and Tender (Mild tenderness palpation epigastrium and right upper quadrant)
Neuro: Awake, Alert and Oriented (Oriented to self and intermittently location; pleasant)
Psych: Calm
Data Reviewed
-
Ultrasound: Image Personally Visualized and interpreted, Discussed with Physician, Discussed with Patient and Discussed with Family
Labs: Labs Reviewed by me, Discussed with Physician, Discussed with Patient and Discussed with Family
Assessment / Plan
-
Assessment: 64-year-old female with dementia admitted with acute biliary colic versus acute calculus cholecystitis.
Ultrasound imaging confirms numerous shadowing gallstones. No gallbladder wall thickening but it does appear to have some hyperenhancement. No biliary ductal dilation. Slightly elevated AST and ALT with normal alkaline phosphatase, bilirubin and
lipase.
Reviewed with patient and primarily her daughter who was at bedside indications for consideration of cholecystectomy. After our discussions regarding risks and benefits of surgical versus nonoperative management options the patient's daughter
wishes to proceed with cholecystectomy.
Laparoscopic cholecystectomy with possible cholangiogram was reviewed in detail with the patient's daughter including the operative technique, alternative treatment options, benefits and potential risks such as but not limited to bleeding,
infectious and related complications, iatrogenic injury to surrounding viscera, bile duct injury, bile leak. We discussed risk for postoperative medical related complications such as delirium/cardiovascular and pulmonary complications, possible
need for more assisted care post procedurally. Discussed the typical postoperative recovery and hospitalization pending operative findings as well. Any of the patient's or her daughters concerns or questions were fully addressed and informed
consent was obtained.
Plan: Patient has been added onto the OR schedule for lap blas today
Looking at timing and current surgery schedule likely will not be until the late afternoon or early evening.
--- NOTE | 2024-10-28 10:50 | W.PN.HOSP.TC ---
Today's Communication/Plan
-
for surgical intervention
Assessment / Plan
Assessment / Plan
84-year-old with a history of dementia, biliary colic presenting with intermittent abdominal pain nausea vomiting. Currently well-appearing on examination. Cardiac testing was negative for ACS. Labs were benign, she is afebrile and shows no signs
of acute cholecystitis or cholangitis. There is no pancreatitis. Presentation consistent with recurrent biliary colic.
slight elevation of troponin, 0.041-->0.033-->0.040 with nl EKG x2, consistent with no evidence of acute CAD
non ischemic myocardial injury
discussed with dgt, if she would like a cardio consult at this time. Do not believe would change anything and as such dgt defers
Pt is medically cleared for OR with low cardiovascular risk
PLAN:
Billiary colic
- admit to med/surg
- npo for planned surgery
reviewed with Dr. Silverman
- trend LFTs
- pain control and antiemetics
- consult to surgery reviewed with Dr. Silverman
call placed to physician advisor (Yary Bourgeois) regarding OBS/Admit, recommendation is to continue OBS at this time
- Continue her memantine and donepizil
-DVT PPX - SCDs
Code status - DNR
Anticipated Discharge: 24 - 48 hours
Subjective/Interval History
-
Date of Service: October 28, 2024
No abdominal pain currently
Objective Data
-
Labs:
Laboratory Results
10/28/24
06:04
Sodium 139
Potassium 3.8
Chloride 112 H
Carbon Dioxide 27
BUN 10
Creatinine 0.6
Glucose 82
Calcium 8.2 L
Total Bilirubin 0.4
AST 50 H
ALT 47 H
Alkaline Phosphatase 48
Vital Signs:
Vital Signs
Temp Pulse Resp BP Pulse Ox
98.7 F 70 17 118/72 95
10/27/24 23:30 10/27/24 23:30 10/27/24 23:30 10/27/24 23:30 10/27/24 23:30
I&O
10/27/24 10/28/24 10/29/24
06:59 06:59 06:59
Intake Total
Balance
Review of Systems
-
History Source: Patient and Family (reviewed with candacet, Dixie)
Constitutional: Denies Fever
EENT: Reports No Symptoms Reported
Respiratory: Reports No Symptoms
Cardiac: Reports No Symptoms; Denies Chest Pain
Abdomen/GI: Reports Abdominal Pain (no pain currently)
Genitourinary: Reports No Symptoms
Neuro: Reports No Symptoms
Physical Exam
-
General: Well Developed, Well Nourished and No Apparent Distress
HEENT: Normocephalic, Atraumatic and Moist Mucous Membranes
Respiratory: Clear to Auscultation; Negative Wheezes, Rales or Rhonchi
Cardiac: Regular Rhythm and S1/S2
GI: Soft, Nontender and Nondistended
Musculoskeletal: No Clubbing, No Cyanosis and No Edema
Neuro: Awake and Alert
--- NOTE | 2024-10-28 18:20 | W.SUR.PREOP ---
Pre-Operative Surgical Note
-
I have examined this patient prior to the performance of the scheduled procedure.
The patient's condition is unchanged from the time of the current History and
Physical and the patient is able to undergo the scheduled procedure.
--- NOTE | 2024-10-28 20:13 | W.IMMPOSTOP ---
Addendum entered and electronically signed by Jamie Silverman MD 10/28/24 20:22:
#[id number]
Original Note:
Surgical Immed Post Op Note
-
Primary Surgeon: Jamie Silverman MD
Assisting Surgeon: None
Pre-op Diagnosis: Acute biliary colic
Post-op Diagnosis: Acute biliary colic/chronic calculus cholecystitis
Procedure Performed: Laparoscopic cholecystectomy
Anesthesia Type: GETA +0.25% Marcaine with epi
Specimen / Cultures: Gallbladder
Estimated Blood Loss: 30 mL
Complications: None immediate
Operative Findings: Gallbladder with chronic omental adhesions. Cystic duct and artery individually identified and controlled with clips. Dilated veins around the cystic duct and cystic triangle which accounted for slight increase in blood loss.
Gallbladder removed intact and extracted at epigastric 12 mm trocar site. No additional intra-abdominal findings.
Patient's daughter Kristan updated postoperatively via phone call
[2024-10-28] MEDS: DILAUDID 0.25 MG IV ×2 (20:53→22:22)
[2024-10-28] MEDS: NSS 1000 IV (21:16)
[2024-10-28] MEDS: ZOFRAN 4 MG IV (21:16)
[2024-10-28] MEDS: FLUSH (NSS) 1 FLUSH IV (22:22)
[2024-10-29 00:10] VITALS: BP 147/71
[2024-10-29] MEDS: DILAUDID 0.5 MG IV (00:33)
[2024-10-29] MEDS: MAALOX 30 ML PO (00:40)
[2024-10-29 01:10] VITALS: BP 123/64
[2024-10-29 03:26] VITALS: BP 130/65
[2024-10-29 07:10] VITALS: BP 134/61
--- NOTE | 2024-10-29 07:14 | W.PN.GS2 ---
Today's Communication / Plan
-
`
Assessment / Plan
-
Assessment: 84-year-old female POD #1 status post lap blas for symptomatic cholelithiasis and acute biliary colic
AFVSS
Doing well postop
Plan: Cleared for discharge from surgical standpoint.
Surgical follow-up in 2 to 3 weeks
Subjective Data
-
Date of Service: October 29, 2024
Patient seen and examined. Sleeping. Awoke easily.
Reoriented to hospitalization pleasantly.
Denies abdominal pain, denies nausea, pleasant
Objective Data
-
Intake and Output
10/28/24 10/29/24 10/30/24
06:59 06:59 06:59
Intake Total 60 / 60
Balance 60 / 60
Intake:
Oral fluids 60 / 60
Other:
Number of approximated MODERATE 3 2
amounts of urine
Vital Signs
Temp Pulse Resp BP Pulse Ox
98.1 F 75 14 130/65 95
10/29/24 03:26 10/29/24 03:26 10/29/24 03:26 10/29/24 03:26 10/29/24 03:26
Lab Results
10/27/24 15:34
10/28/24 06:04
Calcium 8.2 mg/dl (8.4-10.2) L 10/28/24 06:04
Total Bilirubin 0.4 mg/dl (0.2-1.3) 10/28/24 06:04
Direct Bilirubin 0.1 mg/dl (0.0-0.4) 10/28/24 06:04
AST 50 U/L (14-36) H 10/28/24 06:04
ALT 47 U/L (0-35) H 10/28/24 06:04
Alkaline Phosphatase 48 U/L (38-126) 10/28/24 06:04
Total Protein 5.2 g/dl (6.3-8.2) L 10/28/24 06:04
Albumin 2.3 g/dl (3.5-5.0) L 10/28/24 06:04
Physical Exam
-
NAD AAO to self
ABD: Soft, nondistended, nontender
Surgical sites with glue dressings.
[2024-10-29 08:47] LABS: % Basophils 0.1 % (0-2); % Immature Granulocytes 0.3 % (0-0.5); % Lymphocytes 12.9 % (20.5-51.1); % Monocytes 5.8 % (1.7-9.3); % Neutrophils 80.9 % (42.2-75.2); Absolute Monocytes 0.4 10^3/uL (0.1-0.6); Hematocrit 34.5 % (37.0-47.0); Hemoglobin 11.7 g/dL (12.0-16.0); Mean Corp Hgb Conc. 33.9 g/dL (33.0-37.0); Mean Corpuscular Hgb 28.9 pg (27.0-31.0); Mean Corpuscular Volume 85.2 fL (81.0-99.0); Mean Platelet Volume 9.7 fL (7.4-10.4); Nucleated Red Blood Cells % 0 %; Platelet Count 261 10^3/uL (130-400); Red Blood Cell Count 4.05 10^6/uL (4.20-5.40); Red Cell Dist. Width 12.8 % (11.5-14.5); White Blood Cell Count 7.4 10^3/uL (4.8-10.8)
[2024-10-29 09:34] LABS: Blood Urea Nitrogen 14 mg/dl (7-17); Calcium 8.3 mg/dl (8.4-10.2); Carbon Dioxide 27 mmol/L (22-30); Chloride 104 mmol/L (98-107); Estimated Creatinine Clearance 55 ml/min; Glucose 121 mg/dl (70-99); Potassium 4.9 mmol/L (3.5-5.1); Sodium 135 mmol/L (135-145); eGFR > 60.00
[2024-10-29] MEDS: NSS IV ×2 (10:13→14:45)
[2024-10-29] MEDS: DELTASONE 2.5 MG PO (10:13)
[2024-10-29] MEDS: THERAGRAN 1 TABLET PO (10:14)
[2024-10-29] MEDS: ARICEPT 10 MG PO (10:14)
[2024-10-29] MEDS: NAMENDA 20 MG PO (10:14)
[2024-10-29] MEDS: VITAMIN B-12 500 MCG PO (10:15)
[2024-10-29 11:57] VITALS: BP 133/64
--- NOTE | 2024-10-29 12:35 | W.PN.HOSP.TC ---
Today's Communication/Plan
-
dc to home
Assessment / Plan
Assessment / Plan
84-year-old with a history of dementia, biliary colic presenting with intermittent abdominal pain nausea vomiting. Currently well-appearing on examination. Cardiac testing was negative for ACS. Labs were benign, she is afebrile and shows no signs
of acute cholecystitis or cholangitis. There is no pancreatitis. Presentation consistent with recurrent biliary colic.
slight elevation of troponin, 0.041-->0.033-->0.040 with nl EKG x2, consistent with no evidence of acute CAD
non ischemic myocardial injury
Pt did very well perioperatively
PLAN:
Biliary colic
-dc to home
call placed to physician advisor (Yary Bourgeois)
- Continue her memantine and donepizil
-DVT PPX - SCDs
Code status - DNR
dc to home
see dictated note
Anticipated Discharge: Today
Subjective/Interval History
-
Date of Service: October 29, 2024
Feels well, hungry, asking about going home
Objective Data
-
Labs:
Laboratory Results
10/29/24
08:29
WBC 7.4
Hgb 11.7 L
Hct 34.5 L
Plt Count 261
Sodium 135
Potassium 4.9 D
Chloride 104
Carbon Dioxide 27
BUN 14
Creatinine 0.6
Glucose 121 H
Calcium 8.3 L
Vital Signs:
Vital Signs
Temp Pulse Resp BP Pulse Ox
97.9 F 75 16 133/64 96
10/29/24 11:57 10/29/24 11:57 10/29/24 11:57 10/29/24 11:57 10/29/24 11:57
I&O
0310/29/24 10/30/24
06:59 06:59 06:59
Intake Total
Balance
Review of Systems
-
History Source: Patient and Family (Dixie)
Constitutional: Reports No Symptoms; Denies Fever
EENT: Reports No Symptoms Reported
Respiratory: Reports No Symptoms
Cardiac: Reports No Symptoms
Abdomen/GI: Denies Abdominal Pain (minimal pain)
Musculoskeletal: Reports No Symptoms
Neuro: Reports No Symptoms
Physical Exam
-
General: Well Developed, Well Nourished and No Apparent Distress
HEENT: Normocephalic, Atraumatic and Moist Mucous Membranes
Respiratory: Clear to Auscultation; Negative Wheezes, Rales or Rhonchi
Cardiac: Regular Rhythm and S1/S2
GI: Soft, Nondistended and Tender (minimally tender)
Musculoskeletal: No Clubbing, No Cyanosis and No Edema
Neuro: Awake, Alert and Oriented
--- NOTE | 2024-10-29 12:44 | W.DS.TRANS ---
DC Summary - Pharmacy Tech Customer Service
-
Discharge Instructions:
Discharge Diagnosis/Procedures Acute biliary colic. Laparoscopic
cholecystectomy
Diet As tolerated,Low Fat
Additional Diets Smaller meals initially after surgery as
abdominal bloating and distention may be common
for the first few days
Additional Activity Routine daily activities are all okay as
tolerated. Avoid lifting over 20 pounds for 3
to 4 weeks postop.
Driving Restrictions No driving
Bathing Restrictions OK to Shower
Wound Care Glue at surgical sites typically peels off in 2
to 3 weeks
Instructions:
Stand-Alone Forms:
Changes to Home Medications: Yes
Discharge Medications:
DC Medications w/original date entered in [employer]
cyanocobalamin (vitamin B-12) 500 mcg tablet 500 mcg PO DAILY 03/25/24
donepezil 10 mg tablet 10 mg PO DAILY 03/25/24
memantine 10 mg tablet 20 mg PO DAILY 03/25/24
prednisone 5 mg tablet 2.5 mg PO DAILY 03/25/24
therapeutic multivitamin 1 tab PO DAILY 03/25/24
acetaminophen 325 mg tablet 650 mg (2 x 325 mg) PO Q4HPRN PRN mild pain/CANCINO/temp> 100.4F #0 tabs 10/29/24
polyethylene glycol 3350 17 gram oral powder packet 17 g PO DAILYPRN PRN constipation #0 ea 10/29/24
Home Medication Changes
Tylenol prn
Pending Results: Yes
Additional Pending Results:
GB pathology
[2024-10-29 14:50] VITALS: BP 107/46
--- NOTE | 2024-10-29 14:52 | CM ---
Reviewed the chart notes and spoke with the patient and her son at the bedside. CM continues to be available to patient/family and is monitoring medical plan for needs at discharge.
Plan: Discharge to home with resumption of private companions. Patient's son to transport home today.
== END 2024-10-29 15:49 | disposition home or self-care (01) ==
LOC: SDS 21:00
PROVIDERS: Internal Medicine; Physician Assistant; CONSULT PHYSICIAN Surgery; EMERGENCY PHYSICIAN Emergency Medicine; FAMILY PHYSICIAN Internal Medicine Rheumatology
DX: K82.8 Other specified diseases of gallbladder (principal); K80.70 Calculus of gallbladder and bile duct without cholecystitis without obstruction
CPT/HCPCS: 47562; 88304; 76700; 80048; 80053; 82248; 83690; 84484; 85025; 93005; 96361; 96374; 96375; 99285; G0378

== ENCOUNTER 2025-03-14 22:02 | Inpatient (IN) | payer MEDICARE, SELFPAY ==
[2025-03-14] VITALS (8 sets, daily range): BP systolic 90–118; BP diastolic 45–64; PULSE 82–93
--- NOTE | 2025-03-14 16:24 | ED.GENMED ---
History of Present Illness
General
Chief Complaint: Blood Pressure Problem
Source: patient, family and ambulance crew
Exam Limitations: dementia
Time Seen by Provider: 03/14/25 16:11
History of Present Illness
History of Present Illness:
84yoF with a history of dementia, hyperlipidemia, and recent cholecystectomy in October of this year presenting via EMS for evaluation of low blood pressure. Her daughter decided to bring her to the ED due to patient complaining of abdominal pain and
nausea over the weekend. Patient has also not been eating very much and has lost about 15 pounds in the past 3 months. While at the PCP office, her blood pressure was 88/50 and patient appeared pale so EMS was called. Patient has no complaints at
this time and is very upset that she is here. Daughter also complains of 'her breathing being off' although patient denies any dyspnea. She also denies any chest pain, fevers, diarrhea, recent falls.
Past History
Past History
ED Past Medical History: Hypercholesterolemia and Other (Dementia)
ED Past Surgical History: Brain, Gynecological, Orthopedic and Other
Social History
Tobacco: Non-smoker
Alcohol: Occasional
Drug: None
Personal: Partner
Living: alone
Phy Exam
General Physical Exam
General Presentation: well appearing and no apparent distress
General Skin: warm and dry
General Habitus: normal and elderly
General Mental: alert
ENT Exam
ENT Exam: normocephalic
Cardiovascular Exam
Cardiovascular Exam: regular rate/rhythm and no murmur
Pulmonary Exam
Pulmonary Exam: lungs clear, no respiratory distress, no rales, no crackles, no rhonchi and no wheezing
Gastrointestinal Exam
Gastrointestinal Exam: soft, non distended and other (+Epigastric tenderness. Abdomen soft, non-distended. No rebound or guarding.)
Neurological Exam
Neurological Exam: alert
Skin Exam
Skin Exam: normal color and warm/dry
Psychiatric Exam
Psychiatric Exam: agitated
Course
Orders/Labs/Results
Orders:
Orders
03/14/25 Dinner
Clear Liquid
03/14/25 16:14
UA Reflex to Culture [Urinalysis Reflex To Culture] Urgent
Date Specimen was Collected: 03/14/25
Time Specimen was Collected: 16:13
Urine Microscopic Reflex Cult Urgent
Urine Culture Urgent
MARILU Source: U
Specimen Description:
Date Specimen was Collected: 03/14/25
Time Specimen was Collected: 16:13
03/14/25 16:23
Electrocardiogram (*1) Urgent
Reason for Study: Abdominal Pain
EKG- Treatment ONCE
Iohexol [Omnipaque] See Protocol PO NOW STA
03/14/25 16:24
CT Abd/pel W Iv And Oral Contr Urgent
Comment:
Reason For Exam: epigastric pain
03/14/25 16:26
0.9% Sodium Chloride 500 ml [Nss] 500 ml IV BOLUS
03/14/25 16:49
Complete Blood Count/With Diff Urgent
Comprehensive Metabolic Panel Urgent
Lipase Urgent
TSH Reflex To Free T4 Urgent
Troponin I Urgent
03/14/25 17:20
Potassium Chloride 10% Elixir [KCl Elixir] 40 meq PO NOW STA
03/14/25 17:41
EKG- Treatment ONCE
03/14/25 19:40
Electrocardiogram (*1) Urgent
Reason for Study: Abdominal Pain
03/14/25 19:50
Troponin I Urgent
03/14/25 21:09
Admit/Transfer Patient As Directed
Co-Sign Provider:
Level of Care: Inpatient admission
Assign to:: Telemetry
Physician / Group: Benjamin Mckenna
Diagnosis: bladder mass, passage of large amount blood
Reason for Telemetry: Arrhythmia
Date to Stop Telemetry: 03/17/25
Time to Stop Telemetry: 11:00
Reason for Hospitalization: bladder mass, passage of large amount blood
Expected length of stay greater than two midnights?: Yes
ELOS- Estimated Length of Stay in days: 3
I certify the patient meets the requirements for IP care: Yes
PRN Pain Medication Management As Directed
May give lesser potent ordered pain med per pt: Yes
preference::
Protocol:: Medication orders for pain may be administered in a
manner that supports deferring to patient preference
when the pt is:
- Requesting an ordered lesser potent pain medication.
Least to most potent pain medications are defined
as: acetaminophen < NSAID < tramadol < opioids
(morphine, oxycodone, hydromorphone).
- Requesting a lesser dose of the same medication IF
ORDERED.
- Requesting a less intrusive route of administration
if both routes are prescribed by the provider (PO <
IV).
03/14/25 21:10
Code Status As Directed
Resuscitation Status: Do not resuscitate
Reached after discussion with pt or family/Healthcare POA: Yes
Decision communicated with: patient children
DNR Bracelet Application ONCE
03/14/25 21:16
Pantoprazole [Protonix IV] 40 mg IV NOW STA
03/14/25 21:18
0.9% Sodium Chloride [Nss (Preservative Free)] 10 ml IV NOW STA
03/14/25 22:50
0.9% Sodium Chloride 1000 ml [Nss] 1,000 ml IV 80 mls/hr
Acetaminophen [Tylenol] 650 mg PO Q4HPRN PRN
03/14/25 22:50
Type+Screen Routine
Activity As Directed
Activity Level: As Tolerated
INT (Intravenous Needle Therapy) As Directed
Comment: Place 2 IV catheters of the largest bore possible until stable
Orthostatic Vital Signs As Directed
Orthostatic VS Frequency: Now
Comment: then every four hours for twenty-four hours
Pneumatic Compression Sleeves As Directed
Type: Knee high
Vital Signs As Directed
Frequency: Per unit guidelines
Weight As Directed
Frequency: Once
Comment: on admission
DX Deep Vein Thrombosis Video Routine
03/15/25 06:00
Basic Metabolic Panel IN AM
Complete Blood Count/No Diff IN AM
03/15/25 08:00
Pantoprazole [Protonix IV] 40 mg IV DAILY
03/17/25 11:00
DC Protocol for Telemetry ONCE
Abnormal Lab Results
03/14/25 03/14/25 03/14/25
16:14 16:49 19:50
WBC 3.2 L 10^3/uL
(4.8-10.8)
RBC 3.87 L 10^6/uL
(4.20-5.40)
Hgb 11.0 L g/dL
(12.0-16.0)
Hct 32.5 L %
(37.0-47.0)
RDW 15.1 H %
(11.5-14.5)
Absolute Neuts (auto) 1.3 L 10^3/uL
(1.4-6.5)
Neutrophils % 39.5 L %
(42.2-75.2)
Monocytes % 14.0 H %
(1.7-9.3)
Potassium 3.3 L mmol/L
(3.5-5.1)
Chloride 109 H mmol/L
(98-107)
Calcium 7.6 L mg/dl
(8.4-10.2)
AST 88 H U/L
(14-36)
ALT 67 H U/L
(0-35)
Troponin I 0.057 H* ng/ml 0.079 H* D ng/ml
Albumin 2.0 L g/dl
(3.5-5.0)
Urine Ketones 1+ A
(Negative)
Ur Occult Blood Reflex 1+ A
(Negative)
Leukocyte Esterase Rfl 1+ A
(Negative)
Urine Bacteria (Reflex) Few A
(Negative)
Urine Albumin (Reflex) 2+ A
(Neg - Trace)
03/14/25 16:49
03/14/25 16:49
Vital Signs
Initial and Last Documented VS:
Initial Vital Signs
Temp Pulse Resp BP Pulse Ox
98 F 83 18 103/53 97
03/14/25 15:50 03/14/25 15:50 03/14/25 15:50 03/14/25 15:50 03/14/25 15:50
Last Documented Vital Signs
Temp Pulse Resp BP Pulse Ox
98 F 82 20 109/56 97
03/14/25 15:50 03/14/25 22:00 03/14/25 22:00 03/14/25 22:00 03/14/25 21:30
MDM/Problems Addressed
Differential Diagnosis Includes:
84yoF here with low BP at a PCP visit this afternoon. Has been having decreased appetite, weight loss, nausea. Hx of dementia. BP 103/53 on arrival. She is well appearing in no distress and has no complaints at this time. There is epigastric
tenderness on abdominal exam. Differential diagnosis includes but is not limited to: failure to thrive, progression of dementia, dehydration, pancreatitis, gastritis, consider ACS
Initial ED plan: Check abdominal labs, TSH, troponin/EKG, and CT abdomen. IV fluid bolus.
*Pulse Oximetry
SaO2: 98
Oxygen Mode of Delivery: Room air
Patient hypoxic: no (97%)
*EKG
Interpreted by ED Provider?: Yes
EKG Intrepretation Date: 03/14/25
Heart Rate: 84
Rate: normal
Rhythm: sinus
Ty Ty: left axis deviation
Interval: normal interval
QRS Pattern: low voltage
Ischemia: non-specific ST changes
*Critical Care Note
Total Time (30-74mins, 75-104mins- exclusive of procedures): Not Applicable
Update Note
Update Note:
While in ED, patient had several episodes of bleeding and was noted to have bright red blood in the toilet bowl. There are external hemorrhoids present although no blood noted on digital rectal exam. No obvious bleeding noted on speculum exam. CT
shows a suspected bladder mass suggesting origin of bleeding. Hemoglobin is mildly low at 11.0. Troponin also mildly elevated although she denies any chest pain. Patient admitted for further management.
ED Attending Note
-
Portions of this chart may have been created with voice recognition software.� Occasional wrong word or��sound alike� substitutions may have occurred due to the inherent limitations of voice recognition software.
Discharge Plan
Departure
Patient Disposition: Admit
Date of Disposition: 03/14/25
Time of Disposition: 20:16
Presentation/result/management discussed w/ accepting MD/DO: Hospitalist
Discharge Problem:
Bladder mass, Elevated troponin, Hematuria
Interventions
Interventions:
*Risk Screen - Suicide Last Done: 03/14/25 15:59
*General Assessment Last Done: 03/14/25 15:59
*Neglect/Abuse Screening Last Done: 03/14/25 15:59
*ED- Fall Risk Assessment Last Done: 03/14/25 15:59
*ED COVID-19 Vaccine History Last Done: 03/14/25 15:59
*Nursing Disposition Last Done: 03/14/25 22:52
ED- Cardiac Assessment Last Done: 03/14/25 16:05
ED- Neurological Assessment Last Done: 03/14/25 15:59
ED- Pulmonary Assessment Last Done: 03/14/25 16:05
Discharge Date and Time
Discharge Date/Time: 03/14/25 22:53
[2025-03-14 16:25] LABS: Urine Character Clear (Clear)
[2025-03-14] MEDS: NSS 500 IV (16:51)
[2025-03-14] MEDS: OMNIPAQUE 50 ML PO (16:52)
[2025-03-14 16:55] LABS: Hematocrit 32.5 % (37.0-47.0); Hemoglobin 11.0 g/dL (12.0-16.0); Mean Corp Hgb Conc. 33.8 g/dL (33.0-37.0); Mean Corpuscular Volume 84.0 fL (81.0-99.0); Nucleated Red Blood Cells % 0 %; Platelet Count 165 10^3/uL (130-400); Red Cell Dist. Width 15.1 % (11.5-14.5)
[2025-03-14 17:02] LABS: Urine Red Blood Cell 0-2 /HPF (0-2); Urine White Cell 0-2 /HPF (0-5)
[2025-03-14 17:11] LABS: ALT (SGPT) 67 U/L (0-35); AST (SGOT) 88 U/L (14-36); Albumin 2.0 g/dl (3.5-5.0); Alkaline Phosphatase 105 U/L (38-126); Blood Urea Nitrogen 14 mg/dl (7-17); Calcium 7.6 mg/dl (8.4-10.2); Carbon Dioxide 26 mmol/L (22-30); Chloride 109 mmol/L (98-107); Estimated Creatinine Clearance 44 ml/min; Glucose 88 mg/dl (70-99); Lipase 136 U/L (23-300); Potassium 3.3 mmol/L (3.5-5.1); Sodium 135 mmol/L (135-145); Total Protein 6.5 g/dl (6.3-8.2); eGFR > 60.00
[2025-03-14 17:29] LABS: Troponin I 0.057 ng/ml
[2025-03-14] MEDS: KCL ELIXIR 40 MEQ PO (17:45)
--- NOTE | 2025-03-14 20:27 | HPS.HSE ---
Family Physician
-
Family Physician: Jacinda Kim
Chief Complaint
-
low BP
History of Present Illness
Patient is a 84-year-old female with past medical history significant for dementia and hypertension who presented to [facility] ED for evaluation of low BP. Patient was seen out patient in primary office today for abdominal pain, decreased appetite and
weight loss. While in office she was found to have low blood pressure and referred to ED for evaluation. While in ED patient went to restroom where a large amount of bright red blood was seen in toilet. Unable to determine source. Patient denies any
symptoms at this time. She lives in independent living at [facility].
Medical History
Past Medical History
Past Medical History: Reports Other
Additional Past Medical History:
dementia
hypertension
rheumatoid arthritis
Past Surgical History: Reports Other
Additional Past Surgical History:
partial hysterectomy
aneurysm clips
laparoscopic cholecystectomy (pellini) 10/28/2024
Social History
Tobacco: Non-smoker
Alcohol: None
Drug: None
Personal: Single
Living: Alone
Family History
Family History: Not pertinent
Allergies / Home Medications
Allergies reflects when Allergies were last updated in [employer].
Home Medications with original date entered in [employer]
Allergy/Medication List:
Medications on admission are unable to be verified or confirmed at this time.
Review of Systems
-
History Source: Patient
Constitutional: Reports Weight Loss (15 pounds over 3 months )
EENT: Reports No Symptoms
Respiratory: Reports No Symptoms
Cardiac: Reports No Symptoms
Abdomen/GI: Reports Abdominal Pain and Anorexia (poor PO intake )
: Reports No Symptoms
Musculoskeletal: Reports No Symptoms
Skin: Reports No Symptoms
Neurological: Reports No Symptoms
Endocrine: Reports No Symptoms
Hematologic/Lymphatic: Reports No Symptoms
Psych: Reports No Symptoms
Physical Exam
Vital Signs
Vital Signs
Temp Pulse Resp BP Pulse Ox
98 F 82 22 112/64 47
03/14/25 15:50 03/14/25 18:30 03/14/25 18:30 03/14/25 17:00 03/14/25 18:50
Physical Exam
General: Well Developed, Well Nourished and No Apparent Distress
HEENT: NormoCephalic, Moist mucous membranes and Atraumatic
Respiratory: Clear and Non Labored Respirations
Cardiac: S1/S2 and Regular Rhythm; No Murmur
GI: Soft, Non Tender, Non Distended and Normal Bowel Sounds
Rectal: Deferred by Provider
Musculoskeletal: No Clubbing, No Cyanosis and No Edema
Skin: Warm and IV/Catheter Site
Neuro: Awake, Alert and Nonfocal/grossly intact
Psych: Apparent Dementia
Laboratory Results
-
03/14/25 16:49
03/14/25 16:49
Laboratory Results
Total Bilirubin 0.5 mg/dl (0.2-1.3) 03/14/25 16:49
AST 88 U/L (14-36) H 03/14/25 16:49
ALT 67 U/L (0-35) H 03/14/25 16:49
Alkaline Phosphatase 105 U/L (38-126) 03/14/25 16:49
Troponin I 0.057 ng/ml H* 03/14/25 16:49
Lipase 136 U/L (23-300) 03/14/25 16:49
Data Reviewed
-
CT Scan: Report Reviewed by me (Abd/Pel: 1. No significant acute abnormality identified in the abdomen or pelvis, as described above. 2. Small hiatal hernia. 3. Lead pipe appearance of the left colon suggesting sequelae of chronic inflammatory
change. 4. Possible urinary bladder mass. Recommend direct visualization.)
Medical Tests (Nuc Med, Echo, EKG etc): Report Reviewed by me (EKG: NORMAL SINUS RHYTHM LOW VOLTAGE QRS NONSPECIFIC T WAVE ABNORMALITY)
Lab Data: Labs Reviewed by me (hgb 11.0, hct 32.5, K+ 3.3, Ca+ 7.6 (corrected to 9.2), trop 0.057)
Impression/Plan
-
IMPRESSION/PLAN:
#hypotension 2/2 GI bleed vs. 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
hgb 11.0, hct 32.5, K+ 3.3, Ca+ 7.6 (corrected to 9.2), trop 0.057
EKG: NORMAL SINUS RHYTHM
LOW VOLTAGE QRS
NONSPECIFIC T WAVE ABNORMALITY
Abd/Pel CT: 1. No significant acute abnormality identified in the abdomen or pelvis, as described above.
2. Small hiatal hernia.
3. Lead pipe appearance of the left colon suggesting sequelae of chronic inflammatory change.
4. Possible urinary bladder mass. Recommend direct visualization.
no obvious sign of bleeding with ED assessment
- Admit to telemetry
- Blood consent obtained and scanned to chart
- T&S
- Clear liquid diet
- IV Protonix daily
- Consult GI
- Consult Urology
#dementia
- continue donepezil and memantine
#rheumatoid arthritis
- continue prednisone
#hypertension
*med rec not completed, notes above on presumed orders*
Code status: DNR
DVT Prophylaxis: SCDs
--- NOTE | 2025-03-14 20:28 | W.PN.UPDATE ---
Update Note
Progress Note Update
This note serves as an addendum to the H&P by booth cleaner JANES Shahida Tovar
HPI
84F HX significant for dementia,RA, chronic PO prednsione, HLD, recent cholecystectomy in October 2024 seen at ER:
- [facility] for evaluation of low blood pressure.
- reports acute abdominal pain and nausea over the weekend.
- poor appetite, PO intake , lost about 15 pounds in the past 3 months.
- While at the PCP office, BP as low as 88/50 and patient appeared pale so EMS was called.
- Daughter reports 'her breathing being off' although patient denies any dyspnea.
ROS:
denies any chest pain, fevers, diarrhea, recent falls.
Vital Signs
Temp Pulse Resp BP Pulse Ox
98 F 82 22 112/64 47
03/14/25 15:50 03/14/25 18:30 03/14/25 18:30 03/14/25 17:00 03/14/25 18:50
PE
Gen: interactive , suspicious ,
HEENT: anicteric
Neck: supple
No obvious bleeding on digital rectal and speculum exam per ER CLOTH REELER
STUMP BLOWER: alert
MS: no edema
Psych: confused
Abnormal Labs
03/14/25 03/14/25
16:14 16:49
WBC 3.2 L
RBC 3.87 L
Hgb 11.0 L
Hct 32.5 L
RDW 15.1 H
Absolute Neuts (auto) 1.3 L
Neutrophils % 39.5 L
Monocytes % 14.0 H
Potassium 3.3 L
Chloride 109 H
Calcium 7.6 L
AST 88 H
ALT 67 H
Troponin I 0.057 H*
Albumin 2.0 L
Urine Ketones 1+ A
Ur Occult Blood Reflex 1+ A
Leukocyte Esterase Rfl 1+ A
Urine Bacteria (Reflex) Few A
Urine Albumin (Reflex) 2+ A
Last hospitalist admission:10/27/2024- 10/29/2024
DC DXs
1. Symptomatic cholelithiasis. s/p cholecystectomy by Dr. Jamie Silverman on 10/28.
2. Mild dementia.
3. Rheumatoid Arthritis on chronic Prednisone
CT Abd/pel W Iv And Oral Contr
1. No significant acute abnormality identified in the abdomen or pelvis, as described above.
2. Small hiatal hernia.
3. Lead pipe appearance of the left colon suggesting sequelae of chronic inflammatory change.
4. Possible urinary bladder mass. Recommend direct visualization.
Last hospitalist admission:10/27/2024- 10/29/2024
DC DXs
1. Symptomatic cholelithiasis. s/p cholecystectomy by Dr. Jamie Silverman on 10/28.
2. Mild dementia.
3. Rheumatoid Arthritis on chronic Prednisone
ASSESSMENT & PLAN
Pending Rx reconciliation
Passage of large bright red blood in the toilet bowel preceded by abdominal pain : Diff etiology : LGI origin vs. origin vs. Gynae origin like bladder mass origin
Hypotension suspect due to acute blood loss
- CT suggest large bladder mass
- No obvious bleeding on digital rectal and speculum exam.
- T & S, Blood consent
- Clear and IVF
- empiric IV PPI daily
- Trend Hgb
- To start with GI and Uro consult -f low suspicion for GO or origins , to consider Gynae consult
HX chr PO prednisone dependent RA
Significant dementia
- on Donepezil + Memantine
DVT Px: SCD
DNR per daughter
IP TLM
[2025-03-14 20:41] LABS: Troponin I 0.079 ng/ml
[2025-03-14] MEDS: NSS (PRESERVATIVE FREE) 10 ML IV (21:46)
[2025-03-14] MEDS: PROTONIX IV 40 MG IV (21:46)
[2025-03-15] VITALS (12 sets, daily range): BP systolic 65–108; BP diastolic 35–70; PULSE 57–106
[2025-03-15] MEDS: NSS 1000 IV ×2 (00:06→14:47)
--- NOTE | 2025-03-15 05:12 | PTCARENOTE ---
Pt had not further blood in urine throughout shift, cont for 3 voids and 3 green/yellow watery BM this shift. Pt cont on bed alarm, has used call ponce @ times, poor safety awareness, weak gait
[2025-03-15 05:58] LABS: Hematocrit 27.8 % (37.0-47.0); Hemoglobin 9.4 g/dL (12.0-16.0); Mean Corp Hgb Conc. 33.8 g/dL (33.0-37.0); Mean Corpuscular Volume 84.2 fL (81.0-99.0); Platelet Count 153 10^3/uL (130-400); Red Cell Dist. Width 15.1 % (11.5-14.5)
--- NOTE | 2025-03-15 06:15 | DOWNTIME ---
There was a [employer] Downtime on 03/15/2025 from 0100 to 03/15/2025 at 0220. Downtime documentation of patient's care, including medication administrations, has been reconciled in the electronic record per guidelines. Refer to the
patient's paper chart under the miscellaneous tab to see printed paper medication records and downtime forms.
[2025-03-15 06:28] LABS: Blood Urea Nitrogen 12 mg/dl (7-17); Calcium 7.4 mg/dl (8.4-10.2); Carbon Dioxide 25 mmol/L (22-30); Chloride 113 mmol/L (98-107); Estimated Creatinine Clearance 44 ml/min; Glucose 72 mg/dl (70-99); Potassium 3.5 mmol/L (3.5-5.1); Sodium 135 mmol/L (135-145); eGFR > 60.00
[2025-03-15 06:39] LABS: Iron 62 ug/dl (37-170)
[2025-03-15 06:49] LABS: Total Iron Binding Capacity 121 ug/dl (265-497)
--- NOTE | 2025-03-15 07:42 | W.PN.HOSP.TC ---
Today's Communication/Plan
-
Monitor hemoglobin.
IV fluid.
Midodrine
cystoscopy on .
Assessment / Plan
Assessment / Plan
Impression:
84F HX significant for dementia, chronic PO prednisone, HLD, recent cholecystectomy in October 2024, presented to the ER with passage of large bright red blood in the toilet bowel preceded by abdominal pain. Found to have�hypotension which is
suspected due to acute blood loss.
CT suggest large bladder mass
No obvious bleeding on digital rectal and speculum exam. No hematuria in UA. �Blood consent. Clear and IVF. Empiric IV PPI daily. Trend Hgb, IP TLM. �GI and Uro consult�
Assessment/plan:
Acute blood loss anemia.
Continue to trend hemoglobin.
Transfuse if needed.
Source possibly GI bleeding
GI consulted
Hypotension secondary to blood loss
Positive orthostatics
EKG: NORMAL SINUS RHYTHM
LOW VOLTAGE QRS
NONSPECIFIC T WAVE ABNORMALITY
Abd/Pel CT: 1. No significant acute abnormality identified in the abdomen or pelvis, as described above.
2. Small hiatal hernia.
3. Lead pipe appearance of the left colon suggesting sequelae of chronic inflammatory change.
4. Possible urinary bladder mass. Recommend direct visualization.
- IV fluid.
Start midodrine
Bladder mass
Urology consulted
Plan for cystoscopy on .
Dementia
- continue donepezil and memantine
Rheumatoid arthritis
- continue prednisone
CODE STATUS: DNR
DVT prophylaxis: SCDs
Diet: clear diet
Family communication: Discussed with daughter at bedside
Disposition:cystoscopy on .
Total time spent on today's encounter was 65 minutes which included time spent in counseling the patient/family regarding diagnosis and treatment plan as listed above, goals of care, and symptom management. Case was discussed with nursing staff,
specialists, and care coordinators/case management. All labs and imaging personally reviewed by me. Remainder the time spent in detailed review of previous records, lab data, imaging, and other medical provider documentation.
Anticipated Discharge: > 48 hours
Subjective/Interval History
-
Date of Service: March 15, 2025
Patient seen and examined at bedside, denies any chest pain or shortness of breath, patient is confused and cannot provide interval history.
Later on I discussed with family at bedside.
Objective Data
-
Labs:
Laboratory Results
03/15/25
05:23
WBC 3.0 L
Hgb 9.4 L
Hct 27.8 L
Plt Count 153
Sodium 135
Potassium 3.5
Chloride 113 H
Carbon Dioxide 25
BUN 12
Creatinine 0.7
Glucose 72
Calcium 7.4 L
Vital Signs:
Vital Signs
Temp Pulse Resp BP Pulse Ox
97.6 F 86 16 108/45 98
03/15/25 03:05 03/15/25 03:05 03/15/25 03:05 03/15/25 03:05 03/15/25 03:05
Physical Exam
-
General: Well Developed, Well Nourished, No Apparent Distress and Comfortable
HEENT: Normocephalic, Atraumatic, Moist Mucous Membranes, No Ptosis, PERRLA and Nose Appears Normal
Respiratory: Clear to Auscultation and Non Labored Respirations
Cardiac: Regular Rhythm and S1/S2
Breast: Deferred by me
GI: Soft, Nontender, Nondistended and Normal Bowel Sounds
Genito-urinary: No Costovertebral Tender
Musculoskeletal: No Clubbing, No Cyanosis and No Edema
Skin: Warm
Neuro: Awake, Alert, Oriented, AO x 3 and No Motor Deficits
Psych: Confused
Data Reviewed
-
Diagnostic Radiology: Image personally visualized and interpreted and Report Reviewed by me
CT Scan: Image personally visualized and interpreted and Report Reviewed by me
Ultrasound: Image personally visualized and interpreted and Report Reviewed by me
MRI: Image personally visualized and interpreted and Report Reviewed by me
Medical Tests (Nuc Med, Echo etc): Image personally visualized and interpreted and Report Reviewed by me
Labs: Labs Reviewed by me
Old Records: Reviewed
[2025-03-15 08:19] LABS: Ferritin 191.0 ng/ml (11.1-264.0)
--- NOTE | 2025-03-15 08:43 | CON.GI ---
Addendum entered and electronically signed by Madai Villafuerte DO 03/15/25 16:05:
Patient seen and examined independently of TYLER. I agree with her note with my additions below
Modesta is an 84-year-old female with history of dementia, RA on Remicade previous laparoscopic cholecystectomy in October 2024 he was admitted with weakness hypotension with orthostasis and 15 pound weight loss over the past 3 months. While here in
the hospital she had a significant amount of bright red blood and on admission hemoglobin 11 down to 9.4 with a normal BUN. She had a CT scan with IV and oral contrast found to have a possible bladder mass and is set to undergo a cystoscopy with
urology on under anesthesia. The left colon also had a questionable leadpipe appearance. Her family is noticed a recent decline over the past few months and even some incontinence of formed stools.
On exam her abdomen is soft nontender. She had a small liquid brown loose stool while I was present. There was no blood present.
Her last colonoscopy was prior to age 79 [address] Elaine. I do not have the report. Her daughter had metastatic colon cancer.
Red blood in the toilet -bowel movement that I witnessed was yellow-brown and liquid with no blood
-- Monitor hemoglobin
-- Await cystoscopy on . If not malignant consider colonoscopy
-- Ferritin is 191 no iron deficiency
-- Urine does not show any significant blood either
-- monitor bowel movements and chart frequency, color and consistency
-- Discussed with daughter at bedside
--
Addendum entered and electronically signed by TYLER Campo 03/15/25 09:50:
Pt also with mild transaminase elevation will repeat in AM
Original Note:
Consultation
-
Date/Time Consultation Requested: 03/14/25 7760
Date/Time Consultation Performed: 03/15/25 0845
Requesting Provider: TYLER Merrill
Performing Provider: TYLER Cordova, Madai Villafuerte DO
Reason for Consultation: wt loss
Medical History
Chief Complaint / HPI
Chief Complaint: wt loss
History of Present Illness:
Pt is a 84yo with hx HTN, dementia, lap blas 10/2024, RA on Remicade- Dr. Alvarez on every 6 weeks not currently on Prednisone(was tobin to go 03/15 with next infusion), partial hysterectomy, brain aneurysm clip with now admission with hypotension with
orthostasis, with complaints of recent nausea and wt loss of 15 lbs wt loss in last 3 months. pt was also noted noted with bright red blood per rectum and change on bowel habit. On admission labs notable for hbg 11 with drop to 9.4 and normal
BUN, annamarie 0.5, AST 88, alk 67, alk phos 105, troponin up to 0.079, albumin 2. CT completed with IV and oral contrast with possible bladder mass , small HH and Lead pipe appearance of the left colon suggesting sequelae of chronic inflammatory
change.
In review with family, pt has been noted with recent decline over last few months. She was noted with weakness some reported abdominal pain and early satiety. Per family she recent need to cut foods, She has recently needed to start
wearing attends as some incontinence of formed stools and reports hx chronic constipation. She was on Metamucil but family stopped around February 25 when noted loose stools and incontinence issues. No hx rectal bleeding but did have some rectal
bleeding on admission. Initially unsure of blood was in stool or urine but noted with yellow urine after admission. Per family recent. No NASAID use. Hx colonoscopy prior to age 79, family recall no abnormality. Unsure of EGD in past.
Recent start of Seroquel for anxiety then stopped.
Past Medical History
Past Medical History: HTN, Psychiatric (dementia ) and Other (RA)
Past Surgical History: Cholecystectomy and Other (partial hysterectomy, brain with aneurysm clip)
Social History
Tobacco: Former Smoker
Alcohol: Occasional (rare )
Drug: None
Personal:
Living: Alone (companisons and plan to move to memory care )
Employment: Retired
Family History
Family History: Other (daughter with colon Cancer at age 50's, father prostate Ca, mother dementia )
Allergies / Home Medications
Allergy/AdvReac Type Severity Reaction Status Date / Time
No Known Allergies Allergy Verified 10/27/24 15:08
�Medication �Instructions �Recorded
cyanocobalamin (vitamin B-12) 500 500 mcg PO DAILY 03/25/24
mcg tablet
donepezil 10 mg tablet 10 mg PO DAILY 03/25/24
memantine 10 mg tablet 20 mg PO DAILY 03/25/24
prednisone 5 mg tablet 2.5 mg PO DAILY 03/25/24
therapeutic multivitamin 1 tab PO DAILY 03/25/24
acetaminophen 325 mg tablet 650 mg (2 x 325 mg) PO Q4HPRN PRN 10/29/24
mild pain/CANCINO/temp> 100.4F #0 tabs
polyethylene glycol 3350 17 gram 17 g PO DAILYPRN PRN constipation 10/29/24
oral powder packet #0 ea
Review of Systems
-
Unable to obtain full review of systems at this time due to: Dementia
History Source: Patient and Family
Constitutional: Reports Fever and Other (diffuse pain )
EENT: Reports No Symptoms
Respiratory: Reports Trouble Breathing ( x 1 )
Cardiac: Reports No Symptoms
Abdomen/GI: Reports Abdominal Pain and Other (decreased appetite )
: Reports No Symptoms
Musculoskeletal: Reports Joint Pain
Skin: Reports No Symptoms
Neurological: Reports Dizzy and Weakness
Endocrine: Reports No Symptoms
Hematologic/Lymphatic: Reports Bleeding
Vital Signs
Temp Pulse Resp BP Pulse Ox
98.2 F 81 18 101/45 98
03/15/25 07:35 03/15/25 07:35 03/15/25 07:35 03/15/25 07:35 03/15/25 07:35
Physical Exam
Exam
General: Other (elderly female )
HEENT: Normocephalic and Anicteric
Respiratory: Clear
Cardiac: Regular Rhythm
GI: Soft, Non Tender and Non Distended
Rectal: Other (no impaction, no blood seen + hemorrhoids - limited with pt ability to cooperate )
Musculoskeletal: No Clubbing and No Cyanosis
Skin: Warm and Dry
Neuro: Awake, Alert and Other (cofusion )
Psych: Calm
Results
WBC 3.0 10^3/uL (4.8-10.8) L 03/15/25 05:23
Hgb 9.4 g/dL (12.0-16.0) L 03/15/25 05:23
Hct 27.8 % (37.0-47.0) L 03/15/25 05:23
MCV 84.2 fL (81.0-99.0) 03/15/25 05:23
Plt Count 153 10^3/uL (130-400) 03/15/25 05:23
Absolute Neuts (auto) 1.3 10^3/uL (1.4-6.5) L 03/14/25 16:49
Sodium 135 mmol/L (135-145) 03/15/25 05:23
Potassium 3.5 mmol/L (3.5-5.1) 03/15/25 05:23
Chloride 113 mmol/L (98-107) H 03/15/25 05:23
Carbon Dioxide 25 mmol/L (22-30) 03/15/25 05:23
BUN 12 mg/dl (7-17) 03/15/25 05:23
Creatinine 0.7 mg/dL (0.6-1.0) 03/15/25 05:23
Calcium 7.4 mg/dl (8.4-10.2) L 03/15/25 05:23
Total Bilirubin 0.5 mg/dl (0.2-1.3) 03/14/25 16:49
AST 88 U/L (14-36) H 03/14/25 16:49
ALT 67 U/L (0-35) H 03/14/25 16:49
Alkaline Phosphatase 105 U/L (38-126) 03/14/25 16:49
Lipase 136 U/L (23-300) 03/14/25 16:49
Diagnostic Image Results:
03/14/25 CT Abd/pel W Iv And Oral Contr
1. No significant acute abnormality identified in the abdomen or pelvis, as described above.
2. Small hiatal hernia.
3. Lead pipe appearance of the left colon suggesting sequelae of chronic inflammatory change.
4. Possible urinary bladder mass. Recommend direct visualization.
Prior GI Procedures:
EGD: ? in past
Colonoscopy: last prior to age 79 Dr. Elaine
Assessment / Plan
-
Pt is a 84yo with hx HTN, dementia, lap blas 10/2024, RA on Remicade- Dr. Alvarez on every 6 weeks not currently on Prednisone(was tobin to go 03/15 with next infusion), partial hysterectomy, brain aneurysm clip with now admission with hypotension with
orthostasis, with complaints of recent nausea and wt loss of 15 lbs wt loss with early satiety in last 3 months. pt was also noted noted with bright red blood per rectum and change on bowel habit. On admission labs notable for hbg 11 with drop
to 9.4 and normal BUN, annamarie 0.5, AST 88, alk 67, alk phos 105, troponin up to 0.079, albumin 2. CT completed with IV and oral contrast with possible bladder mass , small HH and Lead pipe appearance of the left colon suggesting sequelae of chronic
inflammatory change. Per family recent. No NASAID use. Hx colonoscopy prior to age 79, family recall no abnormality. Unsure of EGD in past. Recent start of Seroquel for anxiety then stopped.
-wt loss with early satiety
-orthostasis
-change in bowel habit with lead pipe appearance of colon on CT
-new onset rectal bleeding
-anemia - iron studies not c/w iron deficiency
-possible bladder mass
-chronic constipation
-increased troponin
-hypoalbuminemia
other med problems:
-dementia with recent decline and plan to move to memory care
-RA on chronic Remicade
-brain aneurysm with clipping
PLAN:
etiology of wt loss and decline unclear- underlying bladder mass, colon process with rectal bleeding - lead pipe appearance of colon, wt loss, vs progression of dementia
pt did have yellow urine this am --rectal exam this AM limited with pt ability to cooperate but no impaction no blood seen with external hemorrhoids
will review with Dr. Villafuerte for GI work up - need for colonoscopy
pt with some drop in hbg after admission but iron studies not consistent with iron deficiency
await urology input
await medical input with elevated troponin noted on admission and orthostasis with BP drop to 80's this am with standing
cont clear diet for now
trend hbg
cont PPI
updated daughter for history
-
-
-
Thank you for consultation and allowing me to participate in the patient's care. Please call the [facility] GI physician during the after hours with any questions or concerns.
[2025-03-15] MEDS: NSS (PRESERVATIVE FREE) 10 ML IV (08:47)
[2025-03-15] MEDS: PROTONIX IV 40 MG IV (08:47)
[2025-03-15] MEDS: NSS 500 IV (10:33)
--- NOTE | 2025-03-15 10:44 | PTCARENOTE ---
Pt orthostatic VS lying 102/54 HR 83, sitting 82/45 HR 57, and standing 63/35 HR 99. Pt reports feeling dizzy and very fatigued. Dr. Garcia notified. 500cc IV bolus ordered. Care ongoing.
--- NOTE | 2025-03-15 10:48 | W.PN.URO.CBU ---
Today's Communication / Plan
-
for op room thursady late am
Assessment / Plan
-
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
Diagnosis
-
Date of Service: March 15, 2025
-
Patient Diagnosis:hematuria / bladder mass
Post Op Day:
Subjective
-
feels well no pain
Objective
-
Vital Signs
Temp Pulse Resp BP Pulse Ox
98.2 F 81 18 101/45 98
03/15/25 07:35 03/15/25 07:35 03/15/25 07:35 03/15/25 07:35 03/15/25 07:35
Intake and Output
03/14/25 03/15/25 03/16/25
06:59 06:59 06:59
Intake Total 480 / 480
Balance 480 / 480
Intake:
Oral fluids 480 / 480
Other:
Number of approximated MODERATE 2
amounts of urine
Laboratory Results
03/15/25 05:23
03/15/25 05:23
Review of Systems
-
: Bleeding
Physical Exam
-
General - well developed, well nourished, no acute distress
Chest - clear bilaterally
Abdomen - soft, non-tender, positive bowel sounds, no CVAT, no incisional pain or distention
Genitalia - normal
Rectal - normal
Skin - warm & dry with no rash
Neuro - AOx3, no motor deficits
Extremities - no clubbing, no cyanosis, no edema
Incision - clean, dry
Dressing - clean, dry, intact
Care Review
Data Reviewed
Discussed with: Hospitalist, Nursing and Family (left message for day-=ughter)
CT Scan: Image Pers Reviewed
--- NOTE | 2025-03-15 15:02 | CM ---
Patient seen at bedside on with daughter. Patient lives at [facility] in independent apartment. Patient for procedure on and may need to be discharged with lund cath to Skilled living. CM left VM for liaison at [facility] and
following procedure will send referral to [facility], family also would be interested in [facility], or [facility] if no beds available at [facility]. CM will continue to follow for discharge planning needs.
Plan; SNF pending medical treatment plan; will need referral to SNF options
[2025-03-16] VITALS (7 sets, daily range): BP systolic 76–111; BP diastolic 46–55; PULSE 68–96
[2025-03-16] MEDS: NSS 1000 IV (02:44)
[2025-03-16 05:43] LABS: Hematocrit 30.4 % (37.0-47.0); Hemoglobin 10.2 g/dL (12.0-16.0); Mean Corp Hgb Conc. 33.6 g/dL (33.0-37.0); Mean Corpuscular Volume 84.7 fL (81.0-99.0); Platelet Count 141 10^3/uL (130-400); Red Cell Dist. Width 15.4 % (11.5-14.5)
[2025-03-16 06:24] LABS: Troponin I 0.055 ng/ml
[2025-03-16 06:26] LABS: ALT (SGPT) 57 U/L (0-35); AST (SGOT) 83 U/L (14-36); Albumin 1.6 g/dl (3.5-5.0); Alkaline Phosphatase 98 U/L (38-126); Blood Urea Nitrogen 10 mg/dl (7-17); Calcium 7.2 mg/dl (8.4-10.2); Carbon Dioxide 22 mmol/L (22-30); Chloride 115 mmol/L (98-107); Estimated Creatinine Clearance 44 ml/min; Glucose 74 mg/dl (70-99); Potassium 3.6 mmol/L (3.5-5.1); Sodium 136 mmol/L (135-145); Total Protein 5.5 g/dl (6.3-8.2); eGFR > 60.00
[2025-03-16] MEDS: PROTONIX IV 40 MG IV (08:06)
[2025-03-16] MEDS: NSS (PRESERVATIVE FREE) 10 ML IV (08:06)
--- NOTE | 2025-03-16 08:37 | W.PN.GI.CBS2 ---
Addendum entered and electronically signed by TYLER Campo 03/16/25 19:41:
reviewed with speech therapy -- per family input recent dysphagia with food sticking in mid chest with bringing up mucous. May have some esophageal dysfunction. pending urology work up then consider GI testing.
Addendum entered and electronically signed by Madai Villafuerte DO 03/16/25 14:23:
Patient seen and examined independently of TYLER. I agree with her note with my additions below
Undergoing cystoscopy tomorrow under anesthesia with urology. If no concerning findings proceed to colonoscopy on Friday
After cystoscopy please place patient on clear liquid diet if possible
Patient has no complaints
Addendum entered and electronically signed by TYLER Campo 03/16/25 08:47:
still mild AST/ALT elevation-- looking back chronic elevation and actually higher in past -- liver normal on CT. Add hepaitis B/C
Original Note:
Today's Communication / Plan
-
etiology of wt loss and decline unclear- underlying bladder mass, colon process with rectal bleeding - lead pipe appearance of colon, wt loss, vs progression of dementia
still with yellow urine, small amount red blood and formed brown stools
limited rectal exam 03/15
hbg stable 11-9.4- 10.2
plan for cysto pending results consider colonoscopy after completed
cont low residue diet
family updated 03/15
Assessment / Plan
-
Pt is a 84yo with hx HTN, dementia, lap blas 10/2024, RA on Remicade- Dr. Alvarez on every 6 weeks not currently on Prednisone(was tobin to go 03/15 with next infusion), partial hysterectomy, brain aneurysm clip with now admission with hypotension with
orthostasis, with complaints of recent nausea and wt loss of 15 lbs wt loss with early satiety in last 3 months. pt was also noted noted with bright red blood per rectum and change on bowel habit. On admission labs notable for hbg 11 with drop
to 9.4 and normal BUN, annamarie 0.5, AST 88, alk 67, alk phos 105, troponin up to 0.079, albumin 2. CT completed with IV and oral contrast with possible bladder mass , small HH and Lead pipe appearance of the left colon suggesting sequelae of chronic
inflammatory change. Per family recent. No NASAID use. Hx colonoscopy prior to age 79, family recall no abnormality Dr. [place] [facility]. Unsure of EGD in past. Recent start of Seroquel for anxiety then stopped.
-wt loss with early satiety
-orthostasis
-change in bowel habit with lead pipe appearance of colon on CT
-new onset rectal bleeding
-anemia - iron studies not c/w iron deficiency
-possible bladder mass
-chronic constipation
-increased troponin on admission
-hypoalbuminemia
other med problems:
-dementia with recent decline and plan to move to memory care
-RA on chronic Remicade
-brain aneurysm with clipping
PLAN:
etiology of wt loss and decline unclear- underlying bladder mass, colon process with rectal bleeding - lead pipe appearance of colon, wt loss, vs progression of dementia
still with yellow urine, small amount red blood and formed brown stools
limited rectal exam 03/15
hbg stable 11-9.4- 10.2
plan for cysto pending results consider colonoscopy after completed
cont low residue diet
family updated 03/15
--
-
Subjective
Subjective
Date of Service: March 16, 2025
pt remains confused, on low residue diet, nursing reports yellow urine and small red blood and formed brown stool
Objective
Data Reviewed
Laboratory Data:
Laboratory Results
03/16/25 05:28
03/16/25 05:28
Laboratory Results
Total Bilirubin 0.4 mg/dl (0.2-1.3) 03/16/25 05:28
AST 83 U/L (14-36) H 03/16/25 05:28
ALT 57 U/L (0-35) H 03/16/25 05:28
Alkaline Phosphatase 98 U/L (38-126) 03/16/25 05:28
Lipase 136 U/L (23-300) 03/14/25 16:49
Vital Signs and I&O:
Vital Signs
Temp Pulse Resp BP Pulse Ox
97.9 F 82 20 99/50 95
03/16/25 07:28 03/16/25 07:28 03/16/25 07:28 03/16/25 07:28 03/16/25 07:28
I&O
03/15/25 03/16/25 03/17/25
06:59 06:59 06:59
Intake Total 2440 / 2440
Balance 2440 / 2440
Physical Exam
Physical Exam
HEENT: Anicteric and Moist mucous membranes
Cardiology: Normal Sinus Rhythm
Pulmonary: Clear
GI: Soft, Non Distended and Non Tender
Extremities: No Edema
Neuro: Other (confused )
--- NOTE | 2025-03-16 08:50 | W.PN.URO.CBU ---
Today's Communication / Plan
-
op room npo at hs
Assessment / Plan
-
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
Diagnosis
-
Date of Service: March 16, 2025
-
Patient Diagnosis:
Post Op Day:
Patient Diagnosis:hematuria / bladder mass
Post Op Day:
Subjective
-
no hematuria
Objective
-
Vital Signs
Temp Pulse Resp BP Pulse Ox
97.9 F 82 20 99/50 95
03/16/25 07:28 03/16/25 07:28 03/16/25 07:28 03/16/25 07:28 03/16/25 07:28
Intake and Output
03/15/25 03/16/25 03/17/25
06:59 06:59 06:59
Intake Total 2440 / 2440
Balance 2440 / 2440
Intake:
Oral fluids 1440 / 1440
IV fluids (Total) 1000 / 1000
Other:
Number of approximated MODERATE 3
amounts of urine
Laboratory Results
03/16/25 05:28
03/16/25 05:28
Review of Systems
-
: Bleeding
Physical Exam
-
General - well developed, well nourished, no acute distress
Chest - clear bilaterally
Abdomen - soft, non-tender, positive bowel sounds, no CVAT, no incisional pain or distention
Genitalia - normal
Rectal - normal
Skin - warm & dry with no rash
Neuro - AOx3, no motor deficits
Extremities - no clubbing, no cyanosis, no edema
Incision - clean, dry
Dressing - clean, dry, intact
Care Review
Data Reviewed
Discussed with: Nursing and Family
CT Scan: Image Pers Reviewed
--- NOTE | 2025-03-16 11:36 | PN.CDI ---
CDI
- -
CDI:
Physician Documentation Request
Admit Date: 03/14/25 22:02
Dear Doctor,
Patient admitted for GI bleed.
03/15 Hospitalist PN: 'Dementia - continue donepezil and memantine'
Laboratory Tests
03/14/25 03/15/25 03/16/25
16:49 05:23 05:28
WBC 3.2 L 3.0 L 3.0 L
Based on the above, could you clarify in the progress notes, the appropriate diagnosis, if significant, that supports the above abnormalities and additional evaluation, monitoring and/or treatment rendered:
Leukopenia
Abnormal lab value insignificant
Other
Use of terms such as suspected, likely, concern for, or probable (associated with a specific diagnosis that is being evaluated, monitored, or treated as if it exists) are acceptable and can be coded in the inpatient setting, when documented at the
time of discharge.
Thank you,
Jessica Rosales RN, BSN
CDI Specialist
Available via [place] text
Please use your independent medical judgment in providing your response.
--- NOTE | 2025-03-16 11:42 | W.PN.HOSP.TC ---
Addendum entered and electronically signed by Jose Frye MD 03/16/25 15:11:
Leukopenia
Original Note:
Today's Communication/Plan
-
Monitor hemoglobin.
cystoscopy on .
Assessment / Plan
Assessment / Plan
Impression:
84F HX significant for dementia, chronic PO prednisone, HLD, recent cholecystectomy in October 2024, presented to the ER with passage of large bright red blood in the toilet bowel preceded by abdominal pain. Found to have�hypotension which is
suspected due to acute blood loss.
CT suggest large bladder mass
No obvious bleeding on digital rectal and speculum exam. No hematuria in UA. �Blood consent. Clear and IVF. Empiric IV PPI daily. Trend Hgb, IP TLM. �GI and Uro consult�
Urology recommending cystoscopy on .
Further GI recommendation based on cystoscopy result.
Assessment/plan:
Acute blood loss anemia.
Continue to trend hemoglobin.
Transfuse if needed.
Source possibly GI bleeding
GI consulted
Urology recommending cystoscopy on .
Further GI recommendation based on cystoscopy result.
Hypotension secondary to blood loss
Positive orthostatics
EKG: NORMAL SINUS RHYTHM
LOW VOLTAGE QRS
NONSPECIFIC T WAVE ABNORMALITY
Abd/Pel CT: 1. No significant acute abnormality identified in the abdomen or pelvis, as described above.
2. Small hiatal hernia.
3. Lead pipe appearance of the left colon suggesting sequelae of chronic inflammatory change.
4. Possible urinary bladder mass. Recommend direct visualization.
- IV fluid.
Started on midodrine
Bladder mass
Urology consulted
Plan for cystoscopy on .
Dementia
- continue donepezil and memantine
Rheumatoid arthritis
- continue prednisone
CODE STATUS: DNR
DVT prophylaxis: SCDs
Diet: clear diet
Family communication: Discussed with daughter at bedside
Disposition:cystoscopy on .
Total time spent on today's encounter was 65 minutes which included time spent in counseling the patient/family regarding diagnosis and treatment plan as listed above, goals of care, and symptom management. Case was discussed with nursing staff,
specialists, and care coordinators/case management. All labs and imaging personally reviewed by me. Remainder the time spent in detailed review of previous records, lab data, imaging, and other medical provider documentation.
Anticipated Discharge: > 48 hours
Subjective/Interval History
-
Date of Service: March 16, 2025
Patient is pleasantly confused and cannot provide interval history
Objective Data
-
Labs:
Laboratory Results
03/16/25
05:28
WBC 3.0 L
Hgb 10.2 L
Hct 30.4 L
Plt Count 141
Sodium 136
Potassium 3.6
Chloride 115 H
Carbon Dioxide 22
BUN 10
Creatinine 0.7
Glucose 74
Calcium 7.2 L
Total Bilirubin 0.4
AST 83 H
ALT 57 H
Alkaline Phosphatase 98
Vital Signs:
Vital Signs
Temp Pulse Resp BP Pulse Ox
97.8 F 80 16 100/55 95
03/16/25 11:20 03/16/25 11:20 03/16/25 11:20 03/16/25 11:20 03/16/25 11:20
I&O
03/15/25 03/16/25 03/17/25
06:59 06:59 06:59
Intake Total 2440 / 2440
Balance 2440 / 2440
Physical Exam
-
General: Well Developed, Well Nourished, No Apparent Distress and Comfortable
HEENT: Normocephalic, Atraumatic, Moist Mucous Membranes, No Ptosis, PERRLA and Nose Appears Normal
Respiratory: Clear to Auscultation and Non Labored Respirations
Cardiac: Regular Rhythm and S1/S2
Breast: Deferred by me
GI: Soft, Nontender, Nondistended and Normal Bowel Sounds
Genito-urinary: No Costovertebral Tender
Musculoskeletal: No Clubbing, No Cyanosis and No Edema
Skin: Warm
Neuro: Awake, Alert, Oriented, AO x 3 and No Motor Deficits
Psych: Confused
Data Reviewed
-
Diagnostic Radiology: Image personally visualized and interpreted and Report Reviewed by me
CT Scan: Image personally visualized and interpreted and Report Reviewed by me
Ultrasound: Image personally visualized and interpreted and Report Reviewed by me
MRI: Image personally visualized and interpreted and Report Reviewed by me
Medical Tests (Nuc Med, Echo etc): Image personally visualized and interpreted and Report Reviewed by me
Labs: Labs Reviewed by me
Old Records: Reviewed
--- NOTE | 2025-03-16 12:20 | PTOTSP ---
Speech Language Pathology
Pt seen for clinical bedside swallow evaluation. Daughter stated that pt has been asking her to cut her foods up for her recently and has complained of globus sensation mid chest with bringing up mucus. P.O. trials of regular solids and thin
liquids provided. Pt only accepted 1 bite of a cracker and 2 single sips of thin liquids (1 via cup and 1 via straw). Slightly prolonged mastication noted with trace oral residue, suspect secondary to xerostomia. This cleared with thin liquid
wash. No overt signs of aspiration. Belching noted with P.O. intake. Suspect esophageal etiology of complaints.
Recommend:
(1) Regular solids/thin liquids
(2) Esophageal precautions
(3) Meds as tolerated
(4) Continued GI follow up
(5) STOREROOM KEEPER to sign off. Please reconsult as indicated
[2025-03-17] VITALS (22 sets, daily range): BP systolic 75–121; BP diastolic 32–77
[2025-03-17 06:16] LABS: Hematocrit 32.5 % (37.0-47.0); Hemoglobin 10.8 g/dL (12.0-16.0); Mean Corp Hgb Conc. 33.2 g/dL (33.0-37.0); Mean Corpuscular Volume 84.6 fL (81.0-99.0); Platelet Count 150 10^3/uL (130-400); Red Cell Dist. Width 15.5 % (11.5-14.5)
[2025-03-17 06:26] LABS: INR 1.40; PT 17.6 Sec (11.4-14.6)
[2025-03-17] MEDS: NSS (PRESERVATIVE FREE) 10 ML IV (09:13)
[2025-03-17] MEDS: PROTONIX IV 40 MG IV (09:13)
--- NOTE | 2025-03-17 10:06 | W.PN.HOSP.TC ---
Today's Communication/Plan
-
Monitor hemoglobin.
cystoscopy today
Assessment / Plan
Assessment / Plan
Impression:
84F HX significant for dementia, chronic PO prednisone, HLD, recent cholecystectomy in October 2024, presented to the ER with passage of large bright red blood in the toilet bowel preceded by abdominal pain. Found to have�hypotension which is
suspected due to acute blood loss.
CT suggest large bladder mass
No obvious bleeding on digital rectal and speculum exam. No hematuria in UA. �Blood consent. Clear and IVF. Empiric IV PPI daily. Trend Hgb, IP TLM. �GI and Uro consult�
Urology recommending cystoscopy on .
Further GI recommendation based on cystoscopy result.
Assessment/plan:
Acute blood loss anemia.
Continue to trend hemoglobin.
Transfuse if needed.
Source possibly GI bleeding
GI consulted
Urology recommending cystoscopy on .
Further GI recommendation based on cystoscopy result.
03/17
for OR today.
Hypotension secondary to blood loss
Positive orthostatics
EKG: NORMAL SINUS RHYTHM
LOW VOLTAGE QRS
NONSPECIFIC T WAVE ABNORMALITY
Abd/Pel CT: 1. No significant acute abnormality identified in the abdomen or pelvis, as described above.
2. Small hiatal hernia.
3. Lead pipe appearance of the left colon suggesting sequelae of chronic inflammatory change.
4. Possible urinary bladder mass. Recommend direct visualization.
- IV fluid.
Started on midodrine
Bladder mass
Urology consulted
Plan for cystoscopy on .
Dementia
- continue donepezil and memantine
Rheumatoid arthritis
- continue prednisone
CODE STATUS: DNR
DVT prophylaxis: SCDs
Diet: clear diet
Family communication: Discussed with daughter at bedside
Disposition:cystoscopy on .
Total time spent on today's encounter was 65 minutes which included time spent in counseling the patient/family regarding diagnosis and treatment plan as listed above, goals of care, and symptom management. Case was discussed with nursing staff,
specialists, and care coordinators/case management. All labs and imaging personally reviewed by me. Remainder the time spent in detailed review of previous records, lab data, imaging, and other medical provider documentation.
Anticipated Discharge: > 48 hours
Subjective/Interval History
-
Date of Service: March 17, 2025
Patient seen and examined at bedside, daughter at bedside, patient is pleasantly confused, denies any pain, for OR today.
Objective Data
-
Labs:
Laboratory Results
03/17/25
05:22
WBC 3.2 L
Hgb 10.8 L
Hct 32.5 L
Plt Count 150
PT 17.6 H
INR 1.40
Vital Signs:
Vital Signs
Temp Pulse Resp BP Pulse Ox
97.6 F 83 18 101/54 95
03/17/25 07:40 03/17/25 09:12 03/17/25 07:40 03/17/25 09:12 03/17/25 07:40
I&O
03/16/25 03/17/25 03/18/25
06:59 06:59 06:59
Intake Total 2440 / 2440
Balance 2440 / 2440
Physical Exam
-
General: Well Developed, Well Nourished, No Apparent Distress and Comfortable
HEENT: Normocephalic, Atraumatic, Moist Mucous Membranes, No Ptosis, PERRLA and Nose Appears Normal
Respiratory: Clear to Auscultation and Non Labored Respirations
Cardiac: Regular Rhythm and S1/S2
Breast: Deferred by me
GI: Soft, Nontender, Nondistended and Normal Bowel Sounds
Genito-urinary: No Costovertebral Tender
Musculoskeletal: No Clubbing, No Cyanosis and No Edema
Skin: Warm
Neuro: Awake, Alert, Oriented, AO x 3 and No Motor Deficits
Psych: Confused
Data Reviewed
-
Diagnostic Radiology: Image personally visualized and interpreted and Report Reviewed by me
CT Scan: Image personally visualized and interpreted and Report Reviewed by me
Ultrasound: Image personally visualized and interpreted and Report Reviewed by me
MRI: Image personally visualized and interpreted and Report Reviewed by me
Medical Tests (Nuc Med, Echo etc): Image personally visualized and interpreted and Report Reviewed by me
Labs: Labs Reviewed by me
Old Records: Reviewed
[2025-03-17] MEDS: ZOFRAN 4 MG IV (11:56)
[2025-03-17] MEDS: CYSVIEW KIT 100 MG INTRAVES (12:51)
--- NOTE | 2025-03-17 14:00 | W.SUR.POST ---
Surgical Immediate Post Op
Note
hematuria bladder mas on ct scan
Post Op Diagnosis:blood clot in bladder of unknownwn etiology but no camncer stones does have atrophic vaginits and possibly bled from poor epithelialization
Procedure Performed: cysto under blue light no cancer seen clot evacuated
Primary Surgeon: lenore
Secondary Surgeons:
Anesthesia: general dr monroe
Estimated Blood Loss: 2 cc
Fluids: nss
Drains/Shunts: 0
Specimens/Cultures: 0
Doppler/Duplex/Angio (Y/N): 0
Complications: 0
Operative Findings: mass on s]ct scan c/w tenacious clot in bladder no cancer
--- NOTE | 2025-03-17 14:25 | W.PN.GI.CBS2 ---
Today's Communication / Plan
-
Clear liquids today, EGD and colonoscopy tomorrow
Family agreeable and consenting for patient
Assessment / Plan
-
Pt is a 84yo with hx HTN, dementia, lap blas 10/2024, RA on Remicade- Dr. Alvarez on every 6 weeks not currently on Prednisone(was tobin to go 03/15 with next infusion), partial hysterectomy, brain aneurysm clip with now admission with hypotension with
orthostasis, with complaints of recent nausea and wt loss of 15 lbs wt loss with early satiety in last 3 months. pt was also noted noted with bright red blood per rectum and change on bowel habit. On admission labs notable for hbg 11 with drop
to 9.4 and normal BUN, annamarie 0.5, AST 88, alk 67, alk phos 105, troponin up to 0.079, albumin 2. CT completed with IV and oral contrast with possible bladder mass , small HH and Lead pipe appearance of the left colon suggesting sequelae of chronic
inflammatory change. Per family recent. No NASAID use. Hx colonoscopy prior to age 79, family recall no abnormality Dr. Elaine [facility]. Unsure of EGD in past. Recent start of Seroquel for anxiety then stopped.
-wt loss with early satiety
-orthostasis
-change in bowel habit with lead pipe appearance of colon on CT
-new onset rectal bleeding
-anemia - iron studies not c/w iron deficiency
-possible bladder mass
-chronic constipation
-increased troponin on admission
-hypoalbuminemia
other med problems:
-dementia with recent decline and plan to move to memory care
-RA on chronic Remicade
-brain aneurysm with clipping
PLAN:
etiology of wt loss and decline unclear- underlying bladder mass, colon process with rectal bleeding - lead pipe appearance of colon, wt loss, vs progression of dementia
still with yellow urine, small amount red blood and formed brown stools
limited rectal exam 03/15
hbg stable 11-9.4- 10.2
03/17/25 -still having a small amount of red blood of unclear etiology per RN
Cystoscopy today showed a clot in the bladder but no cancer
Proceeding with endoscopy tomorrow for intermittent dysphagia and weight loss which may be more dementia related and colonoscopy for the questionable bleeding. Last colonoscopy was over 5 years ago at [facility]
Daughter had colon cancer. CT scan shows leadpipe appearance of the colon.
--
-
Subjective
Subjective
Date of Service: March 17, 2025
Patient is currently in PACU getting her cystoscopy. According to the note she had a blood clot of unclear etiology but no malignancy found
Objective
Data Reviewed
Laboratory Data:
Laboratory Results
03/17/25 05:22
03/16/25 05:28
Laboratory Results
PT 17.6 Sec (11.4-14.6) H 03/17/25 05:22
INR 1.40 03/17/25 05:22
Total Bilirubin 0.4 mg/dl (0.2-1.3) 03/16/25 05:28
AST 83 U/L (14-36) H 03/16/25 05:28
ALT 57 U/L (0-35) H 03/16/25 05:28
Alkaline Phosphatase 98 U/L (38-126) 03/16/25 05:28
Lipase 136 U/L (23-300) 03/14/25 16:49
Vital Signs and I&O:
Vital Signs
Temp Pulse Resp BP Pulse Ox
99.5 F 68 19 121/48 100
03/17/25 14:05 03/17/25 14:02 03/17/25 14:02 03/17/25 14:02 03/17/25 14:05
I&O
03/16/25 03/17/25 03/18/25
06:59 06:59 06:59
Intake Total 2440 / 2440
Balance 2440 / 2440
--- NOTE | 2025-03-17 14:32 | CM ---
OR today for cysto and clot evacuation. Clear liq diet. EGD and colonoscopy on 03/18/25. Discharge POC: TBD
[2025-03-17 14:33] LABS: Hepatitis B Surface Antigen Negative (Negative)
[2025-03-17 14:52] LABS: Hepatitis C Antibody Negative (Negative)
[2025-03-17] MEDS: NULYTELY SOLUTION 4 LITERS PO (16:10)
--- NOTE | 2025-03-17 17:46 | PTCARENOTE ---
Pt returned from PACU at 1545 in a bed. Clear at 96% RA. Knee high SCDs in place. Daughter at bedside. Pt to start prep for colonoscopy tomorrow. Pt on clear liquids. Bed locked and in lowest position. Care ongoing.
[2025-03-17] MEDS: NSS 1000 IV (18:46)
--- NOTE | 2025-03-17 19:30 | PTCARENOTE ---
Pt BP's 90's/40's-50's HR 70s. Dr. Frye notified and ordered IVF bolus. Care ongoing.
[2025-03-18] VITALS (10 sets, daily range): BP systolic 87–141; BP diastolic 44–106
[2025-03-18 06:55] LABS: Hematocrit 30.3 % (37.0-47.0); Hemoglobin 10.0 g/dL (12.0-16.0); Mean Corp Hgb Conc. 33.0 g/dL (33.0-37.0); Mean Corpuscular Volume 84.9 fL (81.0-99.0); Nucleated Red Blood Cells % 0 %; Platelet Count 141 10^3/uL (130-400); Red Cell Dist. Width 15.4 % (11.5-14.5)
[2025-03-18 07:13] LABS: ALT (SGPT) 58 U/L (0-35); AST (SGOT) 84 U/L (14-36); Albumin 1.7 g/dl (3.5-5.0); Alkaline Phosphatase 101 U/L (38-126); Blood Urea Nitrogen 14 mg/dl (7-17); Calcium 7.1 mg/dl (8.4-10.2); Carbon Dioxide 21 mmol/L (22-30); Chloride 114 mmol/L (98-107); Estimated Creatinine Clearance 39 ml/min; Glucose 105 mg/dl (70-99); Potassium 4.3 mmol/L (3.5-5.1); Sodium 136 mmol/L (135-145); Total Protein 5.7 g/dl (6.3-8.2); eGFR > 60.00
[2025-03-18] MEDS: NSS (PRESERVATIVE FREE) 10 ML IV (08:54)
[2025-03-18] MEDS: PROTONIX IV 40 MG IV (08:54)
--- NOTE | 2025-03-18 10:27 | W.PN.HOSP.TC ---
Today's Communication/Plan
-
EGD/colonoscopy
Assessment / Plan
Assessment / Plan
Impression:
84F HX significant for dementia, chronic PO prednisone, HLD, recent cholecystectomy in October 2024, presented to the ER with passage of large bright red blood in the toilet bowel preceded by abdominal pain. Found to have�hypotension which is
suspected due to acute blood loss.
CT suggest large bladder mass
No obvious bleeding on digital rectal and speculum exam. No hematuria in UA. �Blood consent. Clear and IVF. Empiric IV PPI daily. Trend Hgb, IP TLM. �GI and Uro consult�
Urology recommending cystoscopy which were done on .
Cystoscopy shows no evidence of bladder mass but shows blood clot.
Plan for EGD/colonoscopy by GI
Assessment/plan:
Acute blood loss anemia.
Continue to trend hemoglobin.
Transfuse if needed.
Source possibly GI bleeding
GI consulted
Urology recommending cystoscopy which was done on .
Cystoscopy shows no evidence of bladder mass but shows blood clot.
Plan for EGD/colonoscopy by GI
Hypotension secondary to blood loss
Positive orthostatics
EKG: NORMAL SINUS RHYTHM
LOW VOLTAGE QRS
NONSPECIFIC T WAVE ABNORMALITY
Abd/Pel CT: 1. No significant acute abnormality identified in the abdomen or pelvis, as described above.
2. Small hiatal hernia.
3. Lead pipe appearance of the left colon suggesting sequelae of chronic inflammatory change.
4. Possible urinary bladder mass. Recommend direct visualization.
- IV fluid.
Started on midodrine
Bladder mass
Urology consulted
Cystoscopy shows no mass but evidence of blood clot
Dementia
- continue donepezil and memantine
Rheumatoid arthritis
- continue prednisone
CODE STATUS: DNR
DVT prophylaxis: SCDs
Diet: clear diet
Family communication: Discussed with daughter at bedside
Disposition: EGD/colonoscopy
Total time spent on today's encounter was 65 minutes which included time spent in counseling the patient/family regarding diagnosis and treatment plan as listed above, goals of care, and symptom management. Case was discussed with nursing staff,
specialists, and care coordinators/case management. All labs and imaging personally reviewed by me. Remainder the time spent in detailed review of previous records, lab data, imaging, and other medical provider documentation.
Anticipated Discharge: 24 - 48 hours
Subjective/Interval History
-
Date of Service: March 18, 2025
Patient seen and examined at bedside.
Patient still confused.
Objective Data
-
Labs:
Laboratory Results
03/18/25
06:21
WBC 2.9 L
Hgb 10.0 L
Hct 30.3 L
Plt Count 141
Sodium 136
Potassium 4.3
Chloride 114 H
Carbon Dioxide 21 L
BUN 14
Creatinine 0.8
Glucose 105 H
Calcium 7.1 L
Total Bilirubin 0.3
AST 84 H
ALT 58 H
Alkaline Phosphatase 101
Vital Signs:
Vital Signs
Temp Pulse Resp BP Pulse Ox
97.9 F 80 16 103/68 97
03/18/25 08:14 03/18/25 08:54 03/18/25 08:14 03/18/25 08:54 03/18/25 08:14
I&O
03/17/25 03/18/25 03/19/25
06:59 06:59 06:59
Intake Total 2760 / 2760
Balance 2760 / 2760
Physical Exam
-
General: Well Developed, Well Nourished, No Apparent Distress and Comfortable
HEENT: Normocephalic, Atraumatic, Moist Mucous Membranes, No Ptosis, PERRLA and Nose Appears Normal
Respiratory: Clear to Auscultation and Non Labored Respirations
Cardiac: Regular Rhythm and S1/S2
Breast: Deferred by me
GI: Soft, Nontender, Nondistended and Normal Bowel Sounds
Genito-urinary: No Costovertebral Tender
Musculoskeletal: No Clubbing, No Cyanosis and No Edema
Skin: Warm
Neuro: Awake, Alert, Oriented, AO x 3 and No Motor Deficits
Psych: Confused
Data Reviewed
-
Diagnostic Radiology: Image personally visualized and interpreted and Report Reviewed by me
CT Scan: Image personally visualized and interpreted and Report Reviewed by me
Ultrasound: Image personally visualized and interpreted and Report Reviewed by me
MRI: Image personally visualized and interpreted and Report Reviewed by me
Medical Tests (Nuc Med, Echo etc): Image personally visualized and interpreted and Report Reviewed by me
Labs: Labs Reviewed by me
Old Records: Reviewed
--- NOTE | 2025-03-18 11:50 | PTCARENOTE ---
Tap Water 500mls rectal enema completed x1 per Dr. [employer] [place], TRUCK MECHANIC APPRENTICE; pads placed under patient, awaiting transport to GI.
--- NOTE | 2025-03-18 12:17 | PTCARENOTE ---
Addendum entered by Jahaira Johnson RN 03/18/25 14:52:
Telephone report received from MILLINERY WORKER Deb @13:55; patient returned on stretcher @14:22; VSS.
Original Note:
Stretcher arrived; patient transported with assistx2 onto stretcher, sent to GI with chart.
--- NOTE | 2025-03-18 14:05 | W.PN.URO.CBU ---
Today's Communication / Plan
-
re consult if gu issues
Assessment / Plan
-
suspicious mass bladder for cysto under anesthesia was a clot asx will sign off
Diagnosis
-
Date of Service: March 18, 2025
-
Patient Diagnosis:
Post Op Day:
Patient Diagnosis:
Post Op Day:
Patient Diagnosis:hematuria / bladder mass cysto revealed clot in bladder no tumor
Post Op Day:
Subjective
-
not but no obvoous gu sxs
Objective
-
Vital Signs
Temp Pulse Resp BP Pulse Ox
98.3 F 79 18 87/56 94
03/18/25 13:37 03/18/25 14:00 03/18/25 14:00 03/18/25 13:45 03/18/25 14:00
Intake and Output
03/17/25 03/18/25 03/19/25
06:59 06:59 06:59
Intake Total 2760 / 2760
Balance 2760 / 2760
Intake:
Oral fluids 1760 / 1760
IV fluids (Total) 1000 / 1000
Other:
Number of approximated SMALL 2 3 1
amounts of urine
Number of approximated MODERATE 1
amounts of urine
How many times incontinent 1 8
MODERATE amount urine
How many times incontinent 3
SATURATED amount urine
Laboratory Results
03/18/25 06:21
03/18/25 06:21
Review of Systems
-
: Bleeding
Physical Exam
-
General - well developed, well nourished, no acute distress
Chest - clear bilaterally
Abdomen - soft, non-tender, positive bowel sounds, no CVAT, no incisional pain or distention
Genitalia - normal
Rectal - normal
Skin - warm & dry with no rash
Neuro - AOx3, no motor deficits
Extremities - no clubbing, no cyanosis, no edema
Incision - clean, dry
Dressing - clean, dry, intact
Care Review
Data Reviewed
Discussed with: Hospitalist
[2025-03-19] VITALS (7 sets, daily range): BP systolic 88–131; BP diastolic 47–99
[2025-03-19 06:40] LABS: Hematocrit 29.8 % (37.0-47.0); Hemoglobin 10.0 g/dL (12.0-16.0); Mean Corp Hgb Conc. 33.6 g/dL (33.0-37.0); Mean Corpuscular Volume 84.9 fL (81.0-99.0); Nucleated Red Blood Cells % 0.5 %; Platelet Count 144 10^3/uL (130-400); Red Cell Dist. Width 15.8 % (11.5-14.5)
[2025-03-19 06:59] LABS: ALT (SGPT) 50 U/L (0-35); AST (SGOT) 72 U/L (14-36); Albumin 1.7 g/dl (3.5-5.0); Alkaline Phosphatase 94 U/L (38-126); Blood Urea Nitrogen 16 mg/dl (7-17); Calcium 7.4 mg/dl (8.4-10.2); Carbon Dioxide 21 mmol/L (22-30); Chloride 115 mmol/L (98-107); Estimated Creatinine Clearance 44 ml/min; Glucose 73 mg/dl (70-99); Potassium 3.3 mmol/L (3.5-5.1); Sodium 137 mmol/L (135-145); Total Protein 5.7 g/dl (6.3-8.2); eGFR > 60.00
[2025-03-19] MEDS: PROTONIX IV 40 MG IV (09:12)
[2025-03-19] MEDS: NSS (PRESERVATIVE FREE) 10 ML IV (09:12)
[2025-03-19] MEDS: KCL ELIXIR 40 MEQ PO (09:12)
--- NOTE | 2025-03-19 11:12 | W.PN.HOSP.TC ---
Today's Communication/Plan
-
Discharge after seen by physical therapy.
Assessment / Plan
Assessment / Plan
Impression:
84F HX significant for dementia, chronic PO prednisone, HLD, recent cholecystectomy in October 2024, presented to the ER with passage of large bright red blood in the toilet bowel preceded by abdominal pain. Found to have�hypotension which is
suspected due to acute blood loss.
CT suggest large bladder mass
No obvious bleeding on digital rectal and speculum exam. No hematuria in UA. �Blood consent. Clear and IVF. Empiric IV PPI daily. Trend Hgb, IP TLM. �GI and Uro consult�
Urology recommending cystoscopy which were done on .
Cystoscopy shows no evidence of bladder mass but shows blood clot.
Plan for EGD/colonoscopy by GI
EGD shows:
- Normal proximal esophagus and mid esophagus.
- [place]-colored mucosa suspicious for short-segment Mishra's
esophagus. Biopsied.
- Z-line irregular, 37 cm from the incisors.
- Small hiatal hernia.
- Erythematous mucosa in the stomach. Biopsied.
- Normal examined duodenum up to the third portion.
- The examination was otherwise normal.
colonoscopy shows:
- External, non-thrombosed hemorrhoids found on perianal exam.
- The examined portion of the ileum was normal.
- One 3 mm polyp in the mid ascending colon, removed with a cold biopsy forceps. Resected and retrieved.
- Internal hemorrhoids.
- The examination was otherwise normal on direct and retroflexionviews without any AVMs, diverticulosis, endoscopic signs of inflammation, or masses.
Assessment/plan:
Acute blood loss anemia.
Continue to trend hemoglobin.
Transfuse if needed.
Source possibly GI bleeding
GI consulted
Urology recommending cystoscopy which was done on .
Cystoscopy shows no evidence of bladder mass but shows blood clot.
Plan for EGD/colonoscopy by GI
03/19
EGD shows:
- Normal proximal esophagus and mid esophagus.
- [place]-colored mucosa suspicious for short-segment Mishra's
esophagus. Biopsied.
- Z-line irregular, 37 cm from the incisors.
- Small hiatal hernia.
- Erythematous mucosa in the stomach. Biopsied.
- Normal examined duodenum up to the third portion.
- The examination was otherwise normal.
colonoscopy shows:
- External, non-thrombosed hemorrhoids found on perianal exam.
- The examined portion of the ileum was normal.
- One 3 mm polyp in the mid ascending colon, removed with a cold biopsy forceps. Resected and retrieved.
- Internal hemorrhoids.
- The examination was otherwise normal on direct and retroflexionviews without any AVMs, diverticulosis, endoscopic signs of inflammation, or masses.
Hypotension secondary to blood loss
Positive orthostatics
EKG: NORMAL SINUS RHYTHM
LOW VOLTAGE QRS
NONSPECIFIC T WAVE ABNORMALITY
Abd/Pel CT: 1. No significant acute abnormality identified in the abdomen or pelvis, as described above.
2. Small hiatal hernia.
3. Lead pipe appearance of the left colon suggesting sequelae of chronic inflammatory change.
4. Possible urinary bladder mass. Recommend direct visualization.
- IV fluid.
Started on midodrine
Bladder mass (ruled out)
Urology consulted
Cystoscopy shows no mass but evidence of blood clot
Dementia
- continue donepezil and memantine
Rheumatoid arthritis
- continue prednisone
CODE STATUS: DNR
DVT prophylaxis: SCDs
Diet: Regular diet
Family communication: Discussed with daughter at bedside
Disposition: EGD/colonoscopy
Total time spent on today's encounter was 65 minutes which included time spent in counseling the patient/family regarding diagnosis and treatment plan as listed above, goals of care, and symptom management. Case was discussed with nursing staff,
specialists, and care coordinators/case management. All labs and imaging personally reviewed by me. Remainder the time spent in detailed review of previous records, lab data, imaging, and other medical provider documentation.
Anticipated Discharge: Today
Subjective/Interval History
-
Date of Service: March 19, 2025
Patient seen and examined at bedside, denies any chest pain or shortness of breath, no abdominal pain, no nausea, no vomiting, no diarrhea or constipation.
Pending physical therapy evaluation.
Objective Data
-
Labs:
Laboratory Results
03/19/25
05:53
WBC 4.1 L
Hgb 10.0 L
Hct 29.8 L
Plt Count 144
Sodium 137
Potassium 3.3 L
Chloride 115 H
Carbon Dioxide 21 L
BUN 16
Creatinine 0.7
Glucose 73
Calcium 7.4 L
Total Bilirubin 0.3
AST 72 H
ALT 50 H
Alkaline Phosphatase 94
Vital Signs:
Vital Signs
Temp Pulse Resp BP Pulse Ox
98.5 F 90 18 104/64 95
03/19/25 07:10 03/19/25 09:13 03/19/25 07:10 03/19/25 09:13 03/19/25 07:10
I&O
03/18/25 03/19/25 03/20/25
06:59 06:59 06:59
Intake Total 2760 / 2760 240 / 240
Balance 2760 / 2760 240 / 240
Physical Exam
-
General: Well Developed, Well Nourished, No Apparent Distress and Comfortable
HEENT: Normocephalic, Atraumatic, Moist Mucous Membranes, No Ptosis, PERRLA and Nose Appears Normal
Respiratory: Clear to Auscultation and Non Labored Respirations
Cardiac: Regular Rhythm and S1/S2
Breast: Deferred by me
GI: Soft, Nontender, Nondistended and Normal Bowel Sounds
Genito-urinary: No Costovertebral Tender
Musculoskeletal: No Clubbing, No Cyanosis and No Edema
Skin: Warm
Neuro: Awake, Alert, Oriented, AO x 3 and No Motor Deficits
Psych: Confused
Data Reviewed
-
Diagnostic Radiology: Image personally visualized and interpreted and Report Reviewed by me
CT Scan: Image personally visualized and interpreted and Report Reviewed by me
Ultrasound: Image personally visualized and interpreted and Report Reviewed by me
MRI: Image personally visualized and interpreted and Report Reviewed by me
Medical Tests (Nuc Med, Echo etc): Image personally visualized and interpreted and Report Reviewed by me
Labs: Labs Reviewed by me
Old Records: Reviewed
--- NOTE | 2025-03-19 14:49 | CM ---
CM met with pt's daughter Modesta [phone] to discuss SNF. Preference is for 1. [facility] 2. [facility] 3. [facility]. Modesta explains pt comes from [place] at [facility] and likely needs to move to memory care. Per daughter, [facility] has no memory care availability at this time. Preference would be among these 3 if possible, the one that can accept for SNF then transition to [place].
Will send SNF referrals now via [facility].
[2025-03-20 03:00] VITALS: BP 105/49
[2025-03-20 07:30] VITALS: BP 92/53
[2025-03-20 08:15] LABS: ALT (SGPT) 44 U/L (0-35); AST (SGOT) 57 U/L (14-36); Albumin 1.6 g/dl (3.5-5.0); Alkaline Phosphatase 92 U/L (38-126); Blood Urea Nitrogen 11 mg/dl (7-17); Calcium 7.3 mg/dl (8.4-10.2); Carbon Dioxide 24 mmol/L (22-30); Chloride 114 mmol/L (98-107); Estimated Creatinine Clearance 52 ml/min; Glucose 80 mg/dl (70-99); Potassium 3.7 mmol/L (3.5-5.1); Sodium 136 mmol/L (135-145); Total Protein 5.7 g/dl (6.3-8.2); eGFR > 60.00
[2025-03-20 08:43] LABS: Hemoglobin 10.4 g/dL (12.0-16.0)
[2025-03-20 08:44] LABS: Hematocrit 31.6 % (37.0-47.0); Mean Corp Hgb Conc. 32.9 g/dL (33.0-37.0); Mean Corpuscular Volume 85.4 fL (81.0-99.0); Platelet Count 143 10^3/uL (130-400); Red Cell Dist. Width 15.8 % (11.5-14.5)
[2025-03-20] MEDS: PROTONIX IV 40 MG IV (08:53)
[2025-03-20] MEDS: NSS (PRESERVATIVE FREE) 10 ML IV (08:54)
[2025-03-20 09:39] LABS: Nucleated Red Blood Cells % 0.9 %
[2025-03-20] MEDS: DELTASONE 2.5 MG PO (10:01)
[2025-03-20] MEDS: NAMENDA 20 MG PO (10:01)
[2025-03-20] MEDS: ARICEPT 10 MG PO (10:01)
--- NOTE | 2025-03-20 11:13 | W.PN.HOSP.TC ---
Today's Communication/Plan
-
cleared for discharge to rehab once bed available.
Assessment / Plan
Assessment / Plan
Impression:
84F HX significant for dementia, chronic PO prednisone, HLD, recent cholecystectomy in October 2024, presented to the ER with passage of large bright red blood in the toilet bowel preceded by abdominal pain. Found to have�hypotension which is
suspected due to acute blood loss.
CT suggest large bladder mass
No obvious bleeding on digital rectal and speculum exam. No hematuria in UA. �Blood consent. Clear and IVF. Empiric IV PPI daily. Trend Hgb, IP TLM. �GI and Uro consult�
Urology recommending cystoscopy which were done on .
Cystoscopy shows no evidence of bladder mass but shows blood clot.
Plan for EGD/colonoscopy by GI
EGD shows:
- Normal proximal esophagus and mid esophagus.
- [place]-colored mucosa suspicious for short-segment Mishra's
esophagus. Biopsied.
- Z-line irregular, 37 cm from the incisors.
- Small hiatal hernia.
- Erythematous mucosa in the stomach. Biopsied.
- Normal examined duodenum up to the third portion.
- The examination was otherwise normal.
colonoscopy shows:
- External, non-thrombosed hemorrhoids found on perianal exam.
- The examined portion of the ileum was normal.
- One 3 mm polyp in the mid ascending colon, removed with a cold biopsy forceps. Resected and retrieved.
- Internal hemorrhoids.
- The examination was otherwise normal on direct and retroflexionviews without any AVMs, diverticulosis, endoscopic signs of inflammation, or masses.
Assessment/plan:
Acute blood loss anemia.
Continue to trend hemoglobin.
Transfuse if needed.
Source possibly GI bleeding
GI consulted
Urology recommending cystoscopy which was done on .
Cystoscopy shows no evidence of bladder mass but shows blood clot.
Plan for EGD/colonoscopy by GI
03/19
EGD shows:
- Normal proximal esophagus and mid esophagus.
- [place]-colored mucosa suspicious for short-segment Mishra's
esophagus. Biopsied.
- Z-line irregular, 37 cm from the incisors.
- Small hiatal hernia.
- Erythematous mucosa in the stomach. Biopsied.
- Normal examined duodenum up to the third portion.
- The examination was otherwise normal.
colonoscopy shows:
- External, non-thrombosed hemorrhoids found on perianal exam.
- The examined portion of the ileum was normal.
- One 3 mm polyp in the mid ascending colon, removed with a cold biopsy forceps. Resected and retrieved.
- Internal hemorrhoids.
- The examination was otherwise normal on direct and retroflexionviews without any AVMs, diverticulosis, endoscopic signs of inflammation, or masses.
Hypotension secondary to blood loss
Positive orthostatics
EKG: NORMAL SINUS RHYTHM
LOW VOLTAGE QRS
NONSPECIFIC T WAVE ABNORMALITY
Abd/Pel CT: 1. No significant acute abnormality identified in the abdomen or pelvis, as described above.
2. Small hiatal hernia.
3. Lead pipe appearance of the left colon suggesting sequelae of chronic inflammatory change.
4. Possible urinary bladder mass. Recommend direct visualization.
- IV fluid.
Started on midodrine
- Resume prednisone
Bladder mass (ruled out)
Urology consulted
Cystoscopy shows no mass but evidence of blood clot
Dementia
- continue donepezil and memantine
Rheumatoid arthritis
- resumed prednisone
CODE STATUS: DNR
DVT prophylaxis: SCDs
Diet: Regular diet
Family communication: Discussed with daughter in multiple occasions at bedside
Disposition: cleared for discharge to rehab once bed available.
Total time spent on today's encounter was 65 minutes which included time spent in counseling the patient/family regarding diagnosis and treatment plan as listed above, goals of care, and symptom management. Case was discussed with nursing staff,
specialists, and care coordinators/case management. All labs and imaging personally reviewed by me. Remainder the time spent in detailed review of previous records, lab data, imaging, and other medical provider documentation.
Anticipated Discharge: Today
Subjective/Interval History
-
Date of Service: March 20, 2025
Patient looks very tired, denies chest pain or shortness of breath.
Objective Data
-
Labs:
Laboratory Results
03/20/25
07:06
WBC 3.4 L
Hgb 10.4 L
Hct 31.6 L
Plt Count 143
Sodium 136
Potassium 3.7
Chloride 114 H
Carbon Dioxide 24
BUN 11
Creatinine 0.6
Glucose 80
Calcium 7.3 L
Total Bilirubin 0.4
AST 57 H
ALT 44 H
Alkaline Phosphatase 92
Vital Signs:
Vital Signs
Temp Pulse Resp BP Pulse Ox
98.1 F 81 16 92/53 93
03/20/25 07:30 03/20/25 08:53 03/20/25 07:30 03/20/25 08:53 03/20/25 07:30
I&O
03/19/25 03/20/25 03/21/25
06:59 06:59 06:59
Intake Total 240 / 240 360 / 360 480 / 480
Balance 240 / 240 360 / 360 480 / 480
Physical Exam
-
General: Well Developed, Well Nourished, No Apparent Distress and Comfortable
HEENT: Normocephalic, Atraumatic, Moist Mucous Membranes, No Ptosis, PERRLA and Nose Appears Normal
Respiratory: Clear to Auscultation and Non Labored Respirations
Cardiac: Regular Rhythm and S1/S2
Breast: Deferred by me
GI: Soft, Nontender, Nondistended and Normal Bowel Sounds
Genito-urinary: No Costovertebral Tender
Musculoskeletal: No Clubbing, No Cyanosis and No Edema
Skin: Warm
Neuro: Awake, Alert, Oriented, AO x 3 and No Motor Deficits
Psych: Confused
Data Reviewed
-
Diagnostic Radiology: Image personally visualized and interpreted and Report Reviewed by me
CT Scan: Image personally visualized and interpreted and Report Reviewed by me
Ultrasound: Image personally visualized and interpreted and Report Reviewed by me
MRI: Image personally visualized and interpreted and Report Reviewed by me
Medical Tests (Nuc Med, Echo etc): Image personally visualized and interpreted and Report Reviewed by me
Labs: Labs Reviewed by me
Old Records: Reviewed
[2025-03-20 11:40] VITALS: BP 100/52
[2025-03-20 15:30] VITALS: BP 113/69
[2025-03-20 23:12] VITALS: BP 100/51
[2025-03-21 07:25] VITALS: BP 119/56
[2025-03-21] MEDS: NSS (PRESERVATIVE FREE) 10 ML IV (09:37)
[2025-03-21] MEDS: PROTONIX IV 40 MG IV (09:38)
[2025-03-21] MEDS: VITAMIN B-12 500 MCG PO (09:38)
[2025-03-21] MEDS: NAMENDA 20 MG PO (09:38)
[2025-03-21] MEDS: ARICEPT 10 MG PO (09:39)
[2025-03-21 09:45] VITALS: BP 105/72
--- NOTE | 2025-03-21 13:18 | W.PN.HOSP.TC ---
Today's Communication/Plan
-
ST eval
Stable for discharge to rehab pending placement
Assessment / Plan
Assessment / Plan
Impression:
84F HX significant for dementia, chronic PO prednisone, HLD, recent cholecystectomy in October 2024, presented to the ER with passage of large bright red blood in the toilet bowel preceded by abdominal pain. Found to have�hypotension which is
suspected due to acute blood loss. CT suggested a large bladder mass, so patient underwent cystoscopy with urology, they found a blood clot however no evidence of bladder mass. Colonoscopy was performed which showed hemorrhoids.
Assessment/plan:
Acute blood loss anemia
CT suggested large bladder mass - Urology recommending cystoscopy which was performed and negative for bladder mass, with evidence of blood clot which was removed
s/p EGD/colonoscopy by GI -erythematous mucosa in stomach was biopsied, colonoscopy showed hemorrhoids
No active bleeding noted and H&H has been stable
Hypotension secondary to blood loss
Positive orthostatics
s/p IV fluid.
BP now stable on midodrine
Dementia
- continue donepezil and memantine
Swallowing difficulty
Speech therapy eval
Rheumatoid arthritis
- Patient previously on prednisone 2.5 mg daily, will resume
CODE STATUS: DNR
DVT prophylaxis: SCDs
Disposition: cleared for discharge to rehab once bed available.
Anticipated Discharge: Within 24 hours
Subjective/Interval History
-
Date of Service: March 21, 2025
Patient denies any acute issues overnight, daughter is at bedside. She notes her mother seems to have some difficulty swallowing swallowing solids unless they are soft.
Objective Data
-
Vital Signs:
Vital Signs
Temp Pulse Resp BP Pulse Ox
97.8 F 88 16 119/56 95
03/21/25 07:25 03/21/25 07:25 03/21/25 07:03/21/25 07:03/21/25 07:25
I&O
03/20/25 03/21/25 03/22/25
06:59 06:59 06:59
Intake Total 360 / 360 1200 / 1200
Balance 360 / 360 1200 / 1200
Review of Systems
-
All other systems: Reviewed and negative
Physical Exam
-
General: No Apparent Distress
HEENT: Moist Mucous Membranes, Anicteric and PERRLA
Respiratory: Clear to Auscultation; Negative Wheezes, Rales or Rhonchi
Cardiac: Regular Rhythm and S1/S2; Negative Murmur, Rub or Gallop
GI: Soft, Nontender, Nondistended and Normal Bowel Sounds
Musculoskeletal: No Edema
Skin: Warm and Dry; Negative Rash, Ulcers or Lesions
Neuro: Awake, Alert and Oriented
Hematologic / Lymphatic: No Lymphadenopathy
Psych: Calm
Data Reviewed
-
Labs: Labs Reviewed by me and Discussed with Family
--- NOTE | 2025-03-21 14:17 | PN.CDI ---
CDI
- -
CDI:
Physician Documentation Request
Admit Date: 03/14/25 22:02
Dear Doctor Uday,
Patient admitted for bleed.
03/14 Potassium level:3.3
03/14 Potassium chloride 40 meq PO administered
03/19 Potassium level:3.3
03/19 Potassium chloride 40 meq PO administered
Based on the above, could you clarify in the progress notes, the appropriate diagnosis, if significant, that supports the above abnormalities and additional evaluation, monitoring and/or treatment rendered:
Hypokalemia
Abnormal lab value insignificant
Other
Use of terms such as suspected, likely, concern for, or probable (associated with a specific diagnosis that is being evaluated, monitored, or treated as if it exists) are acceptable and can be coded in the inpatient setting, when documented at the
time of discharge.
Thank you,
Jessica Rosales RN, BSN
CDI Specialist
Available via [place] text
Please use your independent medical judgment in providing your response.
[2025-03-21 14:29] VITALS: BP 105/49
[2025-03-21 15:00] VITALS: BP 117/53
--- NOTE | 2025-03-21 15:57 | CM ---
Reviewed the chart notes and spoke with the patient's daughter Modesta at the bedside. IMM reviewed. [facility] ref[facility] to [facility], and [facility]. [facility] reviewing. Family will need to fill out financial
application, dtr aware. CM continues to be available to patient/family and is monitoring medical plan for needs at discharge.
Plan: Discharge to SNF once bed secured and patient medically stable. No precert required.
[2025-03-21 23:13] VITALS: BP 104/50
[2025-03-22 07:20] VITALS: BP 127/70
[2025-03-22] MEDS: PROTONIX 40 MG PO (08:56)
[2025-03-22] MEDS: VITAMIN B-12 500 MCG PO (08:56)
[2025-03-22] MEDS: ARICEPT 10 MG PO (08:57)
[2025-03-22] MEDS: NAMENDA 20 MG PO (08:57)
--- NOTE | 2025-03-22 09:27 | W.PN.HOSP.TC ---
Addendum entered and electronically signed by Minh Chavira MD 03/23/25 13:19:
Correction, patient does not have severe protein calorie malnutrition.
Her albumin is 1.6, she has hypoalbuminemia.
Original Note:
Today's Communication/Plan
-
Discharge today
Assessment / Plan
Assessment / Plan
Impression:
84F HX significant for dementia, chronic PO prednisone, HLD, recent cholecystectomy in October 2024, presented to the ER with passage of large bright red blood in the toilet bowel preceded by abdominal pain. Found to have�hypotension which is
suspected due to acute blood loss. CT suggested a large bladder mass, so patient underwent cystoscopy with urology, they found a blood clot however no evidence of bladder mass. Colonoscopy was performed which showed hemorrhoids.
Assessment/plan:
Acute blood loss anemia
CT suggested large bladder mass - Urology recommending cystoscopy which was performed and negative for bladder mass, with evidence of blood clot which was removed
s/p EGD/colonoscopy by GI -erythematous mucosa in stomach was biopsied, colonoscopy showed hemorrhoids
Started on and will discharge on PPI
No active bleeding noted and H&H has been stable
Medically stable for discharge to short-term rehab today
Hypotension secondary to blood loss
Positive orthostatics
s/p IV fluid.
BP now stable on midodrine
Dementia
-Continue donepezil and memantine
Swallowing difficulty
Speech therapy eval
Rheumatoid arthritis
- Patient previously on prednisone 2.5 mg daily, will discontinue prednisone due to patient's gastritis
Severe protein calorie malnutrition
- Encourage oral intake
CODE STATUS: DNR
DVT prophylaxis: SCDs
Disposition: cleared for discharge to rehab once bed available.
Physical Exam
General: No acute distress
HEENT: Normocephalic, Atraumatic, EOMI, MMM
Respiratory: Clear to Auscultation bilaterally
Cardiac: Normal S1/S2, Regular Rate and Rhythm
GI: Soft, Nontender, Nondistended, Normal Bowel Sounds
Extremities: No Clubbing, Cyanosis, or Edema
Neuro: Cognitive impairment noted
Anticipated Discharge: Today
Subjective/Interval History
-
Date of Service: March 22, 2025
Patient reports some blood on the toilet paper while wiping today. Denies chest pain, denies shortness of breath. No fever, no vomiting.
Objective Data
-
Vital Signs:
Vital Signs
Temp Pulse Resp BP Pulse Ox
97.8 F 91 18 127/70 97
03/22/25 07:20 03/22/25 07:20 03/22/25 07:20 03/22/25 07:20 03/22/25 07:20
I&O
03/21/25 03/22/25 03/23/25
06:59 06:59 06:59
Intake Total 1200 / 1200 15 / 15 480 / 480
Balance 1200 / 1200 15 / 15 480 / 480
[2025-03-22] MEDS: ANUSOL HC RECTAL (12:23)
--- NOTE | 2025-03-22 13:17 | CM ---
Reviewed the chart notes and spoke with the patient's daughter Modesta via telephone. [facility] Daughter selected [facility] and completed financial paperwork for the facility. Facility can
take today after a Covid screen completed. Attending and RN updated.
Plan: Discharge to [facility] SNF.
Call report to: [phone] ask for rehab nurse
Fax report to: [phone]
Medical necessity and transport forms on chart.
[2025-03-22] MEDS: ANUSOL HC 25 MG RECTAL (13:53)
[2025-03-22 14:44] LABS: COVID-19 Antigen Negative (Negative)
--- NOTE | 2025-03-22 15:09 | W.DCSUMMARY ---
Addendum entered and electronically signed by Jose Frye MD 03/28/25 07:29:
Hypokalemia
Original Note:
Discharge Summary
Discharge Data
Date of Admission: 03/14/25
Date of Discharge: 03/22/25
-
Pending Results: Yes
Additional Pending Results:
Esophageal biopsy
Hospital Course
Discharge diagnosis:
Bleeding hemorrhoids
Acute blood loss anemia
Possible gastritis and possible Mishra's esophagus
Blood clot in bladder
Hypotension
Dementia
Dysphagia
Rheumatoid arthritis
Hypoalbuminemia
Consults: Urology, GI
03/17/2025
Cystoscopy showing blood clot in bladder that was evacuated, no tumor seen
03/18/2025
Endoscopy
- Normal proximal esophagus and mid esophagus.
- [place]-colored mucosa suspicious for short-segment Mishra's
esophagus. Biopsied.
- Z-line irregular, 37 cm from the incisors.
- Small hiatal hernia.
- Erythematous mucosa in the stomach. Biopsied.
- Normal examined duodenum up to the third portion.
- The examination was otherwise normal
Colonoscopy
- External, non-thrombosed hemorrhoids found on perianal exam.
- The examined portion of the ileum was normal.
- One 3 mm polyp in the mid ascending colon, removed with a cold
biopsy forceps. Resected and retrieved.
- Internal hemorrhoids.
- The examination was otherwise normal on direct and retroflexion
views without any AVMs, diverticulosis, endoscopic signs of
inflammation, or masses.
Hospital course:
84-year-old female with a past medical history of rheumatoid arthritis on low-dose prednisone, dementia, and hypertension who was admitted with hemorrhoidal bleeding, abdominal pain, and low blood pressure. Patient's blood pressure improved with IV
fluids, and was stabilized on midodrine.
Patient was seen in conjunction with urology. Cystoscopy showed a blood clot in the bladder that was evacuated, no tumor was seen.
Patient was seen in conjunction with GI. Colonoscopy showed internal hemorrhoids and external hemorrhoids. Suspect the source of her rectal bleeding was secondary to bleeding hemorrhoids. She was treated with Anusol suppository.
Patient also had an endoscopy, which showed possible Mishra's esophagus and possible gastritis. Her prednisone is permanently discontinued. She was started on and will be discharged on Protonix.
She did have some acute blood loss anemia. Her hemoglobin was 11.0 upon admission, and dipped down to 9.4. Her hemoglobin trended up, and was 10.7 on the day of discharge.
She was seen in conjunction with PT, who recommended short-term rehab. She is discharged to short-term rehab, and needs to follow-up with her PCP 1 week after she leaves rehab.
Disposition: Short-term rehab
Discharge planning: Required 41 minutes
Discharge Plan
-
Patient Disposition: Group Home/SNF
Discharge Diagnosis/Procedures: Hemorrhoidal bleeding
Dementia
Diet: As tolerated and Regular
Activity: With assistance and As tolerated
Other Services: PT and OT
Referrals:
Ke Jackson MD [Active, Urology] - in one to two months
Jacinda Kim DO [Family Provider, Internal Medicine]
Madai Villafuerte DO [Active, Gastroenterology] - in three to four weeks
Prescriptions:
New
midodrine 5 mg Tablet
5 mg PO TID@0800,1300,1800 Qty: 30 0RF
pantoprazole [Protonix] 40 mg tablet,delayed release (DR/EC)
40 mg PO DAILY Qty: 30 0RF
hydrocortisone acetate 25 mg Suppository
25 mg ME BID 3 Days Qty: 6 0RF
Continued
donepezil 10 mg tablet
10 mg PO DAILY
therapeutic multivitamin Tablet
1 tab PO DAILY
cyanocobalamin (vitamin B-12) 500 mcg Tablet
500 mcg PO DAILY
memantine 10 mg tablet
20 mg PO DAILY
polyethylene glycol 3350 17 gram Powder In Packet
17 g PO DAILYPRN PRN (Reason: constipation) Qty: 0 0RF
Discontinued
acetaminophen 325 mg Tablet
650 mg PO Q4HPRN PRN (Reason: mild pain/CANCINO/temp> 100.4F) Qty: 0 0RF
Discharge Orders:
Discharge Patient (As Directed); Ordered 03/22/25
Ordered By: Minh Chavira
Discharge Date and Time
Discharge Date/Time: 03/22/25 19:30
Print Language: MALDIVIAN
[2025-03-22 15:20] VITALS: BP 117/58
--- NOTE | 2025-03-22 15:53 | PTCARENOTE ---
Patient had a small amount of vicente red blood per rectum this AM. Dr. Chavira made aware. Anusol ID ordered and given.
[2025-03-22 17:31] LABS: Hematocrit 31.4 % (37.0-47.0); Hemoglobin 10.7 g/dL (12.0-16.0); Mean Corp Hgb Conc. 34.1 g/dL (33.0-37.0); Mean Corpuscular Volume 84.2 fL (81.0-99.0); Platelet Count 160 10^3/uL (130-400); Red Cell Dist. Width 15.5 % (11.5-14.5)
[2025-03-22 17:49] VITALS: BP 121/70
--- NOTE | 2025-03-22 18:11 | PTCARENOTE ---
Patient again had bright red blood per rectum around 1630. Dr. Chavira made aware. GI, Dr. Kraft made aware. Stat CBC obtained. Hgb 10.7. Dr. Chavira made aware of results and okayed patient for discharge.
--- NOTE | 2025-03-23 08:45 | PN.CDI ---
CDI
- -
CDI:
Physician Documentation Request
Admit Date: 03/14/25 22:02
Dear Doctor Do,
Patient admitted for acute blood loss anemia.
03/22 Hospitalist PN: 'Severe protein calorie malnutrition - Encourage oral intake'
There is either a lack of clinical support for this condition in the current medical record, or there is a lack of recognized standard criteria to support the condition.
[place] Criteria ([facility] Hospitalist 2017)
2 or more criteria must be present for either
non severe or severe malnutrition
Note that the criteria differs related to the
presence of an acute or chronic illness
Acute Illness Chronic Illness
Energy Intake Non Severe: <75% for >7 days Non Severe: <75% for >1 month
Severe: <50% for >5 days Severe: <75% for >1 month
Weight Loss Non Severe: 1-2% over 1 week Non Severe: 5% over 1 month
5% over 1 month 7.5% over 3 months
7.5% over 3 months 10% over 6 months
1 year N/A 20% over 1 year
Severe: >2% over 1 week Severe: >5% over 1 month
>5% over 1 month >7.5% over 3 months
>7.5% over 3 months >10% over 6 months
1 year N/A >20% over 1 year
Body Fat Non Severe: Mild Decrease Non Severe: Mild Loss
Severe: Moderate Decrease Severe: Severe Loss
Muscle Mass Non Severe: Mild Decrease Non Severe: Mild Loss
Severe: Moderate Decrease Severe: Severe Loss
Fluid Accumulation Non Severe: Mild Accumulation Non Severe: Mild Accumulation
Severe: Moderate to severe Severe: Moderate to severe
accumulation accumulation
Reduced [employer] Strength Non Severe: N/A Non Severe: N/A
Severe: Measurably reduced Severe: Measurably reduced
Additional criteria that can be used to Determine if Mild or Moderate Malnutrition ([employer] Manual 2018)
Mild Moderate Severe
Albumin gm/dl <3.0 gm/dl <2.5 gm/dl <2.0 gm/dl
Pre Albumin mg/dl <15 gm/dl <10 mg/dl <5.0 mg/dl
BMI <18.5 <17 <16
The request is for one of the following:
- Additional documentation to support the condition. Indicate if this is in lieu of what may be considered standard criteria, and/or support why the standard criteria may not be present for this patient.
- A more appropriate diagnosis, reflecting the patient's condition
- Severe protein calorie malnutrition remains a known or suspected condition for this patient and is further supported by (include additional documentation in the medical record)
- Severe protein calorie malnutrition has been ruled out and a more appropriate diagnosis for this patient's condition is .
- Other (please specify)
- Unable to determine
Use of terms such as suspected, likely, concern for, or probable (associated with a specific diagnosis that is being evaluated, monitored, or treated as if it exists) are acceptable and can be coded in the inpatient setting, when documented at the
time of discharge.
Thank you,
Jessica Rosales RN, BSN
CDI Specialist
Available via [place] text
Please use your independent medical judgment in providing your response.
== END 2025-03-22 19:30 | DRG 394 ==
LOC: 2 SOUTH 22:02
PROVIDERS: General Practice; Nurse Practitioner Adult Health; Nurse Practitioner Family; Physician Assistant; Student in an Organized Health Care Education/Training Program; ADMITTING PHYSICIAN Internal Medicine; ATTENDING PHYSICIAN Family Medicine; CONSULT PHYSICIAN Internal Medicine; CONSULT PHYSICIAN Specialist; EMERGENCY PHYSICIAN Emergency Medicine; FAMILY PHYSICIAN Internal Medicine
PROC: 0TCB8ZZ Extirpation of Matter from Bladder, Via Natural or Artificial Opening Endoscopic (ICD-10-PCS; 2025-03-17)
PROC: 0DB68ZX Excision of Stomach, Via Natural or Artificial Opening Endoscopic, Diagnostic (ICD-10-PCS; 2025-03-18)
PROC: 0DB58ZX Excision of Esophagus, Via Natural or Artificial Opening Endoscopic, Diagnostic (ICD-10-PCS; 2025-03-18)
PROC: 0DBK8ZX Excision of Ascending Colon, Via Natural or Artificial Opening Endoscopic, Diagnostic (ICD-10-PCS; 2025-03-18)
DX: K64.8 Other hemorrhoids (principal); D62 Acute posthemorrhagic anemia; F03.94 Unspecified dementia, unspecified severity, with anxiety; N32.89 Other specified disorders of bladder; K64.4 Residual hemorrhoidal skin tags; K22.70 Barrett's esophagus without dysplasia; K29.70 Gastritis, unspecified, without bleeding; I95.9 Hypotension, unspecified; R13.10 Dysphagia, unspecified; M06.9 Rheumatoid arthritis, unspecified; E88.09 Other disorders of plasma-protein metabolism, not elsewhere classified; I10 Essential (primary) hypertension; Z66 Do not resuscitate; K59.09 Other constipation; R31.9 Hematuria, unspecified; N95.2 Postmenopausal atrophic vaginitis; R63.4 Abnormal weight loss; K22.89 Other specified disease of esophagus; K44.9 Diaphragmatic hernia without obstruction or gangrene; K31.89 Other diseases of stomach and duodenum; E87.6 Hypokalemia; D72.819 Decreased white blood cell count, unspecified; D12.2 Benign neoplasm of ascending colon; E78.00 Pure hypercholesterolemia, unspecified; Z11.52 Encounter for screening for COVID-19; Z79.52 Long term (current) use of systemic steroids; Z87.891 Personal history of nicotine dependence
CPT/HCPCS: 71045; 74177; 80048; 80053; 81003; 81015; 82248; 82728; 83540; 83550; 83690; 84443; 84484; 85025; 85027; 85610; 86704; 86705; 86706; 86803; 86850; 86900; 86901; 87086; 87340; 87811; 88305; 88342; 92610; 93005; 96360; 97116; 97162; 99285; A9589; Q9967